=== PATIENT | male | born 1965 | race Caucasian/White ===

== ENCOUNTER 2021-12-29 14:16 | Inpatient (IN) | payer OTHER ==
[2021-12-29] MEDS ORDERED: ACETAMINOPHEN 325 MG TABLET (FP) PO PRN ×2 (16:15)
[2021-12-29] MEDS ORDERED: ONDANSETRON *ODT* 4 MG TABLET SL PRN (16:15)
[2021-12-29] MEDS ORDERED: BENZOCAINE/MENTHOL (CHLORASEPTIC ) LOZENGE MM PRN (16:15)
[2021-12-29] MEDS ORDERED: MAGNESIUM CITRATE 300 ML BOTTLE PO PRN (16:15)
[2021-12-29] MEDS ORDERED: MAGNESIUM HYDROX 2400MG/30ML ORAL SUSPENSION 30 ML CUP PO PRN (16:15)
[2021-12-29] MEDS ORDERED: LOPERAMIDE HCL 2 MG CAPSULE PO PRN (16:15)
[2021-12-29] MEDS ORDERED: BISMUTH SUBSALICYLATE 524 MG/30 ML PO PRN (16:15)
[2021-12-29] MEDS ORDERED: IBUPROFEN 400 MG TABLET (FP) PO PRN (16:15)
[2021-12-29] MEDS ORDERED: NICOTINE 10 MG CARTRIDGE (INHALER) IH PRN (16:15)
[2021-12-29] MEDS ORDERED: MAG HYDROX/AL HYDROX/SIMETH 30 ML UNIT-DOSE CUP PO PRN (16:15)
[2021-12-29] MEDS ORDERED: DICYCLOMINE HCL 10 MG CAPSULE PO PRN (16:15)
[2021-12-30 00:04] VITALS: BMI 23.8
[2021-12-30] MEDS: hydrOXYzine PAMOATE 25 MG CAPSULE (FP) PO SCH ×6 (03:26→22:27)
[2021-12-30] MEDS: THIAMINE HCL 100 MG TABLET (FP) PO SCH ×2 (03:27→22:27)
[2021-12-30] MEDS: MELATONIN 5 MG TABLETS PO SCH ×2 (03:37→22:27)
[2021-12-30] MEDS: METHOCARBAMOL 500 MG TABLET PO PRN ×3 (04:15→17:59)
[2021-12-30] MEDS: PRENATAL VITAMINS W/ FOLIC ACID TABLET (FP) PO SCH (10:34)
[2021-12-31] MEDS: hydrOXYzine PAMOATE 25 MG CAPSULE (FP) PO SCH ×5 (07:21→22:11)
[2021-12-31] MEDS: PRENATAL VITAMINS W/ FOLIC ACID TABLET (FP) PO SCH (10:31)
[2021-12-31] MEDS: METHOCARBAMOL 500 MG TABLET PO PRN ×2 (10:33→18:08)
[2021-12-31 13:43] LABS: HEMATOCRIT 29.5 % (35.4-49); HEMOGLOBIN 9.7 GM/dL (11.7-16.9); MCH 25.6 pg (25.7-33.7); MEAN CELL VOLUME 77.7 fl (80-96); MEAN PLT VOLUME 8.8 fl (7.5-11.1); PLATELET COUNT 247 10^3/uL (134-434); WHITE BLOOD COUNT 4.5 K/mm3 (4.0-10.0)
[2021-12-31 13:52] LABS: ALBUMIN 3.1 g/dl (3.4-5.0); CALCIUM 9.3 mg/dL (8.5-10.1)
[2021-12-31 13:53] LABS: BLOOD UREA NITROGEN 8.1 mg/dL (7-18)
[2021-12-31 13:55] LABS: CREATININE 0.6 mg/dL (0.55-1.3)
[2021-12-31 13:56] LABS: TOT PROT 7.9 g/dl (6.4-8.2)
[2021-12-31 13:57] LABS: BILIRUBIN,TOTAL 0.4 mg/dL (0.2-1)
[2021-12-31] MEDS: THIAMINE HCL 100 MG TABLET (FP) PO SCH (22:11)
[2021-12-31] MEDS: MELATONIN 5 MG TABLETS PO SCH (22:11)
[2022-01-01] MEDS: hydrOXYzine PAMOATE 25 MG CAPSULE (FP) PO SCH ×2 (07:18→10:37)
[2022-01-01] MEDS: PRENATAL VITAMINS W/ FOLIC ACID TABLET (FP) PO SCH (10:37)
[2022-01-01 13:12] VITALS: BP 115/73; PULSE 90; TEMP 98.2
== END 2022-01-01 14:12 | disposition other institution (70) | DRG 775 ==
LOC: YASAS 14:16 → Y3N 23:22 → UNDOADMIN 23:22
PROVIDERS: ADMIT Allergy & Immunology; ATTEND Allergy & Immunology
PROC: HZ2ZZZZ Detoxification Services for Substance Abuse Treatment (ICD-10-PCS; principal; 2021-12-29)
DX: F10.230 Alcohol dependence with withdrawal, uncomplicated (principal); D64.9 Anemia, unspecified; S22.42XD Multiple fractures of ribs, left side, subsequent encounter for fracture with routine healing; X58.XXXD Exposure to other specified factors, subsequent encounter
CPT/HCPCS: 36415; 80053; 85027; 86780; 93005; 93010; C9803-CS; U0003; U0005

== ENCOUNTER 2022-01-01 14:29 | Inpatient (IN) | payer OTHER ==
[2022-01-01] MEDS ORDERED: guaiFENesin 200 MG/10 ML 10 ML UNIT-DOSE CUPS PO PRN (15:29)
[2022-01-01] MEDS ORDERED: NICOTINE 10 MG CARTRIDGE (INHALER) IH PRN (15:29)
[2022-01-01] MEDS ORDERED: ACETAMINOPHEN 325 MG TABLET (FP) PO PRN (15:29)
[2022-01-01] MEDS ORDERED: MAGNESIUM CITRATE 300 ML BOTTLE PO PRN (15:29)
[2022-01-01] MEDS ORDERED: P-EPHED 60MG/TRIPROLIDI 2.5MG TABLET PO PRN (15:29)
[2022-01-01] MEDS ORDERED: MAG HYDROX/AL HYDROX/SIMETH 30 ML UNIT-DOSE CUP PO PRN (15:29)
[2022-01-01] MEDS ORDERED: BENZOCAINE/MENTHOL (CHLORASEPTIC ) LOZENGE MM PRN (15:29)
[2022-01-01] MEDS ORDERED: IBUPROFEN 400 MG TABLET (FP) PO PRN (15:29)
[2022-01-01] MEDS ORDERED: LOPERAMIDE HCL 2 MG CAPSULE PO PRN (15:29)
[2022-01-01] MEDS: THIAMINE HCL 100 MG TABLET (FP) PO SCH (21:45)
[2022-01-01] MEDS: MELATONIN 5 MG TABLETS PO SCH (21:46)
[2022-01-02] MEDS: hydrOXYzine PAMOATE 25 MG CAPSULE (FP) PO PRN (01:31)
[2022-01-02] MEDS: PRENATAL VITAMINS W/ FOLIC ACID TABLET (FP) PO SCH (10:57)
[2022-01-02] MEDS: AMOX TR/POT CLAV 875MG/125MG TABLETS (FP) PO SCH ×2 (13:07→21:07)
[2022-01-02] MEDS: POLYETHYLENE GLYCOL 3350 119 GM BTL PO SCH (15:29)
[2022-01-02] MEDS: MELATONIN 5 MG TABLETS PO SCH (21:07)
[2022-01-02] MEDS: THIAMINE HCL 100 MG TABLET (FP) PO SCH (21:07)
[2022-01-03] MEDS: AMOX TR/POT CLAV 875MG/125MG TABLETS (FP) PO SCH ×2 (09:56→21:26)
[2022-01-03] MEDS: POLYETHYLENE GLYCOL 3350 119 GM BTL PO SCH (09:56)
[2022-01-03] MEDS: PRENATAL VITAMINS W/ FOLIC ACID TABLET (FP) PO SCH (09:56)
[2022-01-03] MEDS: METHOCARBAMOL 500 MG TABLET PO SCH ×3 (13:19→21:26)
[2022-01-03] MEDS: LIDOCAINE 5% TOPICAL PATCH TP SCH (13:19)
[2022-01-03] MEDS: THIAMINE HCL 100 MG TABLET (FP) PO SCH (21:26)
[2022-01-03] MEDS: MELATONIN 5 MG TABLETS PO SCH (21:26)
[2022-01-03] MEDS: LIDOCAINE PATCH REMOVAL MC SCH (21:27)
[2022-01-04] MEDS: LIDOCAINE 5% TOPICAL PATCH TP SCH (10:15)
[2022-01-04] MEDS: AMOX TR/POT CLAV 875MG/125MG TABLETS (FP) PO SCH ×2 (10:15→21:10)
[2022-01-04] MEDS: PRENATAL VITAMINS W/ FOLIC ACID TABLET (FP) PO SCH (10:15)
[2022-01-04] MEDS: METHOCARBAMOL 500 MG TABLET PO SCH ×4 (10:15→21:11)
[2022-01-04] MEDS: POLYETHYLENE GLYCOL 3350 119 GM BTL PO SCH (10:15)
[2022-01-04] MEDS: MAGNESIUM HYDROX 2400MG/30ML ORAL SUSPENSION 30 ML CUP PO PRN (10:17)
[2022-01-04] MEDS: TOLNAFTATE 1% CREAM 15 GM TUBE TP SCH ×2 (13:53→21:11)
[2022-01-04] MEDS: FERROUS SO4 325 MG TABLET (FP) PO SCH (17:46)
[2022-01-04] MEDS: THIAMINE HCL 100 MG TABLET (FP) PO SCH (21:11)
[2022-01-04] MEDS: LIDOCAINE PATCH REMOVAL MC SCH (21:11)
[2022-01-04] MEDS: MELATONIN 5 MG TABLETS PO SCH (21:11)
[2022-01-05 06:06] LABS: SARS-CoV-2 NAA Not Detected (Not Detected)
[2022-01-05] MEDS: FERROUS SO4 325 MG TABLET (FP) PO SCH ×2 (07:06→17:30)
[2022-01-05] MEDS: LIDOCAINE 5% TOPICAL PATCH TP SCH (09:34)
[2022-01-05] MEDS: METHOCARBAMOL 500 MG TABLET PO SCH ×4 (09:35→21:05)
[2022-01-05] MEDS: PRENATAL VITAMINS W/ FOLIC ACID TABLET (FP) PO SCH (09:35)
[2022-01-05] MEDS: POLYETHYLENE GLYCOL 3350 119 GM BTL PO SCH (09:35)
[2022-01-05] MEDS: TOLNAFTATE 1% CREAM 15 GM TUBE TP SCH ×2 (09:36→21:06)
[2022-01-05] MEDS: THIAMINE HCL 100 MG TABLET (FP) PO SCH (21:03)
[2022-01-05] MEDS: LIDOCAINE PATCH REMOVAL MC SCH (21:06)
[2022-01-05] MEDS: MELATONIN 5 MG TABLETS PO SCH (21:06)
[2022-01-05] MEDS: hydrOXYzine PAMOATE 25 MG CAPSULE (FP) PO PRN (21:07)
[2022-01-06] MEDS: FERROUS SO4 325 MG TABLET (FP) PO SCH ×2 (07:21→17:23)
[2022-01-06] MEDS: PRENATAL VITAMINS W/ FOLIC ACID TABLET (FP) PO SCH (10:12)
[2022-01-06] MEDS: POLYETHYLENE GLYCOL 3350 119 GM BTL PO SCH (10:12)
[2022-01-06] MEDS: METHOCARBAMOL 500 MG TABLET PO SCH ×4 (10:12→21:33)
[2022-01-06] MEDS: LIDOCAINE 5% TOPICAL PATCH TP SCH (10:12)
[2022-01-06] MEDS: TOLNAFTATE 1% CREAM 15 GM TUBE TP SCH ×2 (10:13→21:35)
[2022-01-06] MEDS: THIAMINE HCL 100 MG TABLET (FP) PO SCH (21:33)
[2022-01-06] MEDS: LIDOCAINE PATCH REMOVAL MC SCH (21:33)
[2022-01-06] MEDS: MELATONIN 5 MG TABLETS PO SCH (21:34)
[2022-01-07] MEDS: FERROUS SO4 325 MG TABLET (FP) PO SCH ×2 (07:03→17:16)
[2022-01-07] MEDS: LIDOCAINE 5% TOPICAL PATCH TP SCH (10:43)
[2022-01-07] MEDS: PRENATAL VITAMINS W/ FOLIC ACID TABLET (FP) PO SCH (10:43)
[2022-01-07] MEDS: METHOCARBAMOL 500 MG TABLET PO SCH ×4 (10:43→21:02)
[2022-01-07] MEDS: POLYETHYLENE GLYCOL 3350 119 GM BTL PO SCH (10:44)
[2022-01-07] MEDS: TOLNAFTATE 1% CREAM 15 GM TUBE TP SCH ×2 (10:46→21:03)
[2022-01-07] MEDS: SENNOSIDES 8.6MG TABLET (FP) PO PRN (21:02)
[2022-01-07] MEDS: THIAMINE HCL 100 MG TABLET (FP) PO SCH (21:03)
[2022-01-07] MEDS: LIDOCAINE PATCH REMOVAL MC SCH (21:03)
[2022-01-07] MEDS: MELATONIN 5 MG TABLETS PO SCH (21:03)
[2022-01-08] MEDS: FERROUS SO4 325 MG TABLET (FP) PO SCH ×2 (07:09→18:30)
[2022-01-08] MEDS: POLYETHYLENE GLYCOL 3350 119 GM BTL PO SCH (09:57)
[2022-01-08] MEDS: LIDOCAINE 5% TOPICAL PATCH TP SCH (09:58)
[2022-01-08] MEDS: METHOCARBAMOL 500 MG TABLET PO SCH ×4 (09:58→21:32)
[2022-01-08] MEDS: PRENATAL VITAMINS W/ FOLIC ACID TABLET (FP) PO SCH (09:58)
[2022-01-08] MEDS: TOLNAFTATE 1% CREAM 15 GM TUBE TP SCH ×2 (09:58→21:33)
[2022-01-08] MEDS: ARTIFICIAL TEARS (POLYVINYL ALCOHOL) OPTH DROPS OU SCH ×2 (13:58→21:33)
[2022-01-08] MEDS: SENNOSIDES 8.6MG TABLET (FP) PO PRN (21:31)
[2022-01-08] MEDS: THIAMINE HCL 100 MG TABLET (FP) PO SCH (21:31)
[2022-01-08] MEDS: MELATONIN 5 MG TABLETS PO SCH (21:31)
[2022-01-08] MEDS: LIDOCAINE PATCH REMOVAL MC SCH (21:33)
[2022-01-09] MEDS: ARTIFICIAL TEARS (POLYVINYL ALCOHOL) OPTH DROPS OU SCH ×3 (06:01→21:05)
[2022-01-09] MEDS: FERROUS SO4 325 MG TABLET (FP) PO SCH ×2 (07:22→16:55)
[2022-01-09] MEDS: POLYETHYLENE GLYCOL 3350 119 GM BTL PO SCH (10:27)
[2022-01-09] MEDS: METHOCARBAMOL 500 MG TABLET PO SCH ×4 (10:27→21:04)
[2022-01-09] MEDS: LIDOCAINE 5% TOPICAL PATCH TP SCH (10:27)
[2022-01-09] MEDS: PRENATAL VITAMINS W/ FOLIC ACID TABLET (FP) PO SCH (10:27)
[2022-01-09] MEDS: TOLNAFTATE 1% CREAM 15 GM TUBE TP SCH ×2 (10:29→21:05)
[2022-01-09] MEDS: MELATONIN 5 MG TABLETS PO SCH (21:04)
[2022-01-09] MEDS: THIAMINE HCL 100 MG TABLET (FP) PO SCH (21:04)
[2022-01-09] MEDS: LIDOCAINE PATCH REMOVAL MC SCH (21:05)
[2022-01-09] MEDS: SENNOSIDES 8.6MG TABLET (FP) PO PRN (21:05)
[2022-01-10] MEDS: ARTIFICIAL TEARS (POLYVINYL ALCOHOL) OPTH DROPS OU SCH ×3 (05:53→21:31)
[2022-01-10] MEDS: FERROUS SO4 325 MG TABLET (FP) PO SCH ×2 (07:36→18:24)
[2022-01-10] MEDS: PRENATAL VITAMINS W/ FOLIC ACID TABLET (FP) PO SCH (10:16)
[2022-01-10] MEDS: METHOCARBAMOL 500 MG TABLET PO SCH ×4 (10:16→21:30)
[2022-01-10] MEDS: LIDOCAINE 5% TOPICAL PATCH TP SCH (10:16)
[2022-01-10] MEDS: POLYETHYLENE GLYCOL 3350 119 GM BTL PO SCH (10:17)
[2022-01-10] MEDS: TOLNAFTATE 1% CREAM 15 GM TUBE TP SCH ×2 (10:17→21:31)
[2022-01-10] MEDS: MELATONIN 5 MG TABLETS PO SCH (21:30)
[2022-01-10] MEDS: SENNOSIDES 8.6MG TABLET (FP) PO PRN (21:30)
[2022-01-10] MEDS: THIAMINE HCL 100 MG TABLET (FP) PO SCH (21:30)
[2022-01-10] MEDS: LIDOCAINE PATCH REMOVAL MC SCH (21:31)
[2022-01-11] MEDS: ARTIFICIAL TEARS (POLYVINYL ALCOHOL) OPTH DROPS OU SCH ×3 (06:08→21:07)
[2022-01-11] MEDS: FERROUS SO4 325 MG TABLET (FP) PO SCH ×2 (09:13→17:40)
[2022-01-11] MEDS: PRENATAL VITAMINS W/ FOLIC ACID TABLET (FP) PO SCH (09:13)
[2022-01-11] MEDS: POLYETHYLENE GLYCOL 3350 119 GM BTL PO SCH (09:13)
[2022-01-11] MEDS: METHOCARBAMOL 500 MG TABLET PO SCH ×4 (09:13→21:07)
[2022-01-11] MEDS: TOLNAFTATE 1% CREAM 15 GM TUBE TP SCH ×2 (09:14→21:08)
[2022-01-11] MEDS: LIDOCAINE 5% TOPICAL PATCH TP SCH (09:14)
[2022-01-11] MEDS: THIAMINE HCL 100 MG TABLET (FP) PO SCH (21:07)
[2022-01-11] MEDS: MELATONIN 5 MG TABLETS PO SCH (21:07)
[2022-01-11] MEDS: LIDOCAINE PATCH REMOVAL MC SCH (21:08)
[2022-01-12] MEDS: ARTIFICIAL TEARS (POLYVINYL ALCOHOL) OPTH DROPS OU SCH ×3 (06:08→21:24)
[2022-01-12] MEDS: FERROUS SO4 325 MG TABLET (FP) PO SCH ×2 (07:06→17:43)
[2022-01-12] MEDS: LIDOCAINE 5% TOPICAL PATCH TP SCH (09:48)
[2022-01-12] MEDS: POLYETHYLENE GLYCOL 3350 119 GM BTL PO SCH (09:49)
[2022-01-12] MEDS: PRENATAL VITAMINS W/ FOLIC ACID TABLET (FP) PO SCH (09:49)
[2022-01-12] MEDS: METHOCARBAMOL 500 MG TABLET PO SCH ×4 (09:49→21:23)
[2022-01-12] MEDS: TOLNAFTATE 1% CREAM 15 GM TUBE TP SCH ×2 (10:14→21:24)
[2022-01-12] MEDS: THIAMINE HCL 100 MG TABLET (FP) PO SCH (21:23)
[2022-01-12] MEDS: MELATONIN 5 MG TABLETS PO SCH (21:23)
[2022-01-12] MEDS: LIDOCAINE PATCH REMOVAL MC SCH (21:24)
[2022-01-13] MEDS: ARTIFICIAL TEARS (POLYVINYL ALCOHOL) OPTH DROPS OU SCH ×3 (06:01→21:02)
[2022-01-13] MEDS: FERROUS SO4 325 MG TABLET (FP) PO SCH ×2 (08:01→18:18)
[2022-01-13] MEDS: PRENATAL VITAMINS W/ FOLIC ACID TABLET (FP) PO SCH (09:48)
[2022-01-13] MEDS: METHOCARBAMOL 500 MG TABLET PO SCH ×4 (09:48→21:01)
[2022-01-13] MEDS: POLYETHYLENE GLYCOL 3350 119 GM BTL PO SCH (09:48)
[2022-01-13] MEDS: TOLNAFTATE 1% CREAM 15 GM TUBE TP SCH ×2 (10:18→21:02)
[2022-01-13] MEDS: LIDOCAINE 5% TOPICAL PATCH TP SCH (13:36)
[2022-01-13] MEDS: THIAMINE HCL 100 MG TABLET (FP) PO SCH (21:01)
[2022-01-13] MEDS: MELATONIN 5 MG TABLETS PO SCH (21:01)
[2022-01-13] MEDS: LIDOCAINE PATCH REMOVAL MC SCH (21:02)
[2022-01-14] MEDS: ARTIFICIAL TEARS (POLYVINYL ALCOHOL) OPTH DROPS OU SCH ×3 (06:22→21:23)
[2022-01-14] MEDS: FERROUS SO4 325 MG TABLET (FP) PO SCH ×2 (07:03→17:24)
[2022-01-14] MEDS: METHOCARBAMOL 500 MG TABLET PO SCH ×4 (10:11→21:22)
[2022-01-14] MEDS: LIDOCAINE 5% TOPICAL PATCH TP SCH (10:11)
[2022-01-14] MEDS: PRENATAL VITAMINS W/ FOLIC ACID TABLET (FP) PO SCH (10:11)
[2022-01-14] MEDS: POLYETHYLENE GLYCOL 3350 119 GM BTL PO SCH (10:12)
[2022-01-14] MEDS: TOLNAFTATE 1% CREAM 15 GM TUBE TP SCH ×2 (10:13→21:23)
[2022-01-14] MEDS: MELATONIN 5 MG TABLETS PO SCH (21:22)
[2022-01-14] MEDS: THIAMINE HCL 100 MG TABLET (FP) PO SCH (21:22)
[2022-01-14] MEDS: LIDOCAINE PATCH REMOVAL MC SCH (21:23)
[2022-01-15] MEDS: ARTIFICIAL TEARS (POLYVINYL ALCOHOL) OPTH DROPS OU SCH ×3 (06:11→21:13)
[2022-01-15] MEDS: FERROUS SO4 325 MG TABLET (FP) PO SCH ×2 (08:08→17:32)
[2022-01-15] MEDS: METHOCARBAMOL 500 MG TABLET PO SCH ×4 (09:55→21:12)
[2022-01-15] MEDS: LIDOCAINE 5% TOPICAL PATCH TP SCH (09:55)
[2022-01-15] MEDS: PRENATAL VITAMINS W/ FOLIC ACID TABLET (FP) PO SCH (09:55)
[2022-01-15] MEDS: TOLNAFTATE 1% CREAM 15 GM TUBE TP SCH ×2 (09:57→21:13)
[2022-01-15] MEDS: POLYETHYLENE GLYCOL 3350 119 GM BTL PO SCH (10:24)
[2022-01-15] MEDS: THIAMINE HCL 100 MG TABLET (FP) PO SCH (21:12)
[2022-01-15] MEDS: MELATONIN 5 MG TABLETS PO SCH (21:12)
[2022-01-15] MEDS: LIDOCAINE PATCH REMOVAL MC SCH (21:13)
[2022-01-16] MEDS: ARTIFICIAL TEARS (POLYVINYL ALCOHOL) OPTH DROPS OU SCH ×3 (06:03→21:19)
[2022-01-16] MEDS: FERROUS SO4 325 MG TABLET (FP) PO SCH ×2 (07:16→17:58)
[2022-01-16] MEDS: METHOCARBAMOL 500 MG TABLET PO SCH ×4 (09:32→21:18)
[2022-01-16] MEDS: PRENATAL VITAMINS W/ FOLIC ACID TABLET (FP) PO SCH (09:32)
[2022-01-16] MEDS: POLYETHYLENE GLYCOL 3350 119 GM BTL PO SCH (09:32)
[2022-01-16] MEDS: LIDOCAINE 5% TOPICAL PATCH TP SCH (09:32)
[2022-01-16] MEDS: TOLNAFTATE 1% CREAM 15 GM TUBE TP SCH ×2 (09:33→21:20)
[2022-01-16] MEDS: THIAMINE HCL 100 MG TABLET (FP) PO SCH (21:18)
[2022-01-16] MEDS: MELATONIN 5 MG TABLETS PO SCH (21:19)
[2022-01-16] MEDS: LIDOCAINE PATCH REMOVAL MC SCH (21:19)
[2022-01-17] MEDS: ARTIFICIAL TEARS (POLYVINYL ALCOHOL) OPTH DROPS OU SCH ×3 (06:21→22:15)
[2022-01-17] MEDS: FERROUS SO4 325 MG TABLET (FP) PO SCH ×2 (07:08→18:06)
[2022-01-17] MEDS: LIDOCAINE 5% TOPICAL PATCH TP SCH (10:02)
[2022-01-17] MEDS: POLYETHYLENE GLYCOL 3350 119 GM BTL PO SCH (10:02)
[2022-01-17] MEDS: PRENATAL VITAMINS W/ FOLIC ACID TABLET (FP) PO SCH (10:03)
[2022-01-17] MEDS: TOLNAFTATE 1% CREAM 15 GM TUBE TP SCH ×2 (10:03→21:49)
[2022-01-17] MEDS: METHOCARBAMOL 500 MG TABLET PO SCH ×4 (10:03→21:49)
[2022-01-17] MEDS: MAGNESIUM HYDROX 2400MG/30ML ORAL SUSPENSION 30 ML CUP PO PRN (10:04)
[2022-01-17] MEDS: SENNOSIDES 8.6MG TABLET (FP) PO PRN (21:20)
[2022-01-17] MEDS: MELATONIN 5 MG TABLETS PO SCH (21:20)
[2022-01-17] MEDS: LIDOCAINE PATCH REMOVAL MC SCH (21:49)
[2022-01-17] MEDS: THIAMINE HCL 100 MG TABLET (FP) PO SCH (21:49)
[2022-01-18] MEDS: ARTIFICIAL TEARS (POLYVINYL ALCOHOL) OPTH DROPS OU SCH (05:57)
[2022-01-18] MEDS: FERROUS SO4 325 MG TABLET (FP) PO SCH ×2 (07:47→17:12)
[2022-01-18] MEDS: PRENATAL VITAMINS W/ FOLIC ACID TABLET (FP) PO SCH (10:04)
[2022-01-18] MEDS: POLYETHYLENE GLYCOL 3350 119 GM BTL PO SCH (10:05)
[2022-01-18] MEDS: LIDOCAINE 5% TOPICAL PATCH TP SCH (10:05)
[2022-01-18] MEDS: METHOCARBAMOL 500 MG TABLET PO SCH ×4 (10:05→21:07)
[2022-01-18] MEDS: TOLNAFTATE 1% CREAM 15 GM TUBE TP SCH ×2 (10:06→21:08)
[2022-01-18] MEDS ORDERED: ARTIFICIAL TEARS (POLYVINYL ALCOHOL) OPTH DROPS OU PRN (11:59)
[2022-01-18] MEDS: THIAMINE HCL 100 MG TABLET (FP) PO SCH (21:07)
[2022-01-18] MEDS: MELATONIN 5 MG TABLETS PO SCH (21:08)
[2022-01-18] MEDS: LIDOCAINE PATCH REMOVAL MC SCH (21:09)
[2022-01-19] MEDS: LIDOCAINE 5% TOPICAL PATCH TP SCH (10:03)
[2022-01-19] MEDS: PRENATAL VITAMINS W/ FOLIC ACID TABLET (FP) PO SCH (10:03)
[2022-01-19] MEDS: FERROUS SO4 325 MG TABLET (FP) PO SCH ×2 (10:04→17:44)
[2022-01-19] MEDS: POLYETHYLENE GLYCOL 3350 119 GM BTL PO SCH (10:04)
[2022-01-19] MEDS: METHOCARBAMOL 500 MG TABLET PO SCH ×4 (10:05→21:20)
[2022-01-19] MEDS: TOLNAFTATE 1% CREAM 15 GM TUBE TP SCH ×2 (10:06→21:20)
[2022-01-19] MEDS: THIAMINE HCL 100 MG TABLET (FP) PO SCH (21:20)
[2022-01-19] MEDS: MELATONIN 5 MG TABLETS PO SCH (21:20)
[2022-01-19] MEDS: LIDOCAINE PATCH REMOVAL MC SCH (21:42)
[2022-01-20] MEDS: FERROUS SO4 325 MG TABLET (FP) PO SCH ×2 (07:12→17:09)
[2022-01-20] MEDS: PRENATAL VITAMINS W/ FOLIC ACID TABLET (FP) PO SCH (10:11)
[2022-01-20] MEDS: LIDOCAINE 5% TOPICAL PATCH TP SCH (10:11)
[2022-01-20] MEDS: METHOCARBAMOL 500 MG TABLET PO SCH ×4 (10:13→21:55)
[2022-01-20] MEDS: POLYETHYLENE GLYCOL 3350 119 GM BTL PO SCH (10:13)
[2022-01-20] MEDS: TOLNAFTATE 1% CREAM 15 GM TUBE TP SCH ×2 (10:14→21:55)
[2022-01-20] MEDS: LIDOCAINE PATCH REMOVAL MC SCH (21:54)
[2022-01-20] MEDS: MELATONIN 5 MG TABLETS PO SCH (21:55)
[2022-01-20] MEDS: THIAMINE HCL 100 MG TABLET (FP) PO SCH (21:55)
[2022-01-21] MEDS: FERROUS SO4 325 MG TABLET (FP) PO SCH ×2 (07:44→17:33)
[2022-01-21] MEDS: PRENATAL VITAMINS W/ FOLIC ACID TABLET (FP) PO SCH (10:10)
[2022-01-21] MEDS: METHOCARBAMOL 500 MG TABLET PO SCH ×4 (10:10→22:13)
[2022-01-21] MEDS: POLYETHYLENE GLYCOL 3350 119 GM BTL PO SCH (10:12)
[2022-01-21] MEDS: LIDOCAINE 5% TOPICAL PATCH TP SCH (10:12)
[2022-01-21] MEDS: TOLNAFTATE 1% CREAM 15 GM TUBE TP SCH ×2 (10:13→22:14)
[2022-01-21] MEDS: LIDOCAINE PATCH REMOVAL MC SCH (22:13)
[2022-01-21] MEDS: THIAMINE HCL 100 MG TABLET (FP) PO SCH (22:13)
[2022-01-21] MEDS: MELATONIN 5 MG TABLETS PO SCH (22:13)
[2022-01-22] MEDS: FERROUS SO4 325 MG TABLET (FP) PO SCH ×2 (07:34→17:04)
[2022-01-22] MEDS: LIDOCAINE 5% TOPICAL PATCH TP SCH (10:17)
[2022-01-22] MEDS: METHOCARBAMOL 500 MG TABLET PO SCH ×4 (10:17→21:30)
[2022-01-22] MEDS: PRENATAL VITAMINS W/ FOLIC ACID TABLET (FP) PO SCH (10:17)
[2022-01-22] MEDS: TOLNAFTATE 1% CREAM 15 GM TUBE TP SCH ×2 (10:18→21:31)
[2022-01-22] MEDS: POLYETHYLENE GLYCOL 3350 119 GM BTL PO SCH (11:09)
[2022-01-22] MEDS: THIAMINE HCL 100 MG TABLET (FP) PO SCH (21:30)
[2022-01-22] MEDS: hydrOXYzine PAMOATE 25 MG CAPSULE (FP) PO PRN (21:31)
[2022-01-22] MEDS: MELATONIN 5 MG TABLETS PO SCH (21:31)
[2022-01-22] MEDS: LIDOCAINE PATCH REMOVAL MC SCH (21:31)
[2022-01-23] MEDS: FERROUS SO4 325 MG TABLET (FP) PO SCH ×2 (07:12→17:39)
[2022-01-23] MEDS: PRENATAL VITAMINS W/ FOLIC ACID TABLET (FP) PO SCH (10:03)
[2022-01-23] MEDS: METHOCARBAMOL 500 MG TABLET PO SCH ×4 (10:03→21:44)
[2022-01-23] MEDS: LIDOCAINE 5% TOPICAL PATCH TP SCH (10:03)
[2022-01-23] MEDS: POLYETHYLENE GLYCOL 3350 119 GM BTL PO SCH (10:04)
[2022-01-23] MEDS: TOLNAFTATE 1% CREAM 15 GM TUBE TP SCH ×2 (10:04→21:46)
[2022-01-23] MEDS: LIDOCAINE PATCH REMOVAL MC SCH (21:43)
[2022-01-23] MEDS: MELATONIN 5 MG TABLETS PO SCH (21:44)
[2022-01-23] MEDS: SENNOSIDES 8.6MG TABLET (FP) PO PRN (21:45)
[2022-01-23] MEDS: THIAMINE HCL 100 MG TABLET (FP) PO SCH (21:46)
[2022-01-24] MEDS: FERROUS SO4 325 MG TABLET (FP) PO SCH ×2 (07:10→18:09)
[2022-01-24] MEDS: LIDOCAINE 5% TOPICAL PATCH TP SCH (09:57)
[2022-01-24] MEDS: POLYETHYLENE GLYCOL 3350 119 GM BTL PO SCH (09:57)
[2022-01-24] MEDS: METHOCARBAMOL 500 MG TABLET PO SCH ×4 (09:57→21:24)
[2022-01-24] MEDS: PRENATAL VITAMINS W/ FOLIC ACID TABLET (FP) PO SCH (09:57)
[2022-01-24] MEDS: TOLNAFTATE 1% CREAM 15 GM TUBE TP SCH ×2 (09:58→21:24)
[2022-01-24] MEDS: THIAMINE HCL 100 MG TABLET (FP) PO SCH (21:23)
[2022-01-24] MEDS: LIDOCAINE PATCH REMOVAL MC SCH (21:24)
[2022-01-24] MEDS: MELATONIN 5 MG TABLETS PO SCH (21:24)
[2022-01-25] MEDS: FERROUS SO4 325 MG TABLET (FP) PO SCH ×2 (07:07→17:43)
[2022-01-25] MEDS: LIDOCAINE 5% TOPICAL PATCH TP SCH (10:19)
[2022-01-25] MEDS: PRENATAL VITAMINS W/ FOLIC ACID TABLET (FP) PO SCH (10:19)
[2022-01-25] MEDS: METHOCARBAMOL 500 MG TABLET PO SCH ×4 (10:19→21:36)
[2022-01-25] MEDS: POLYETHYLENE GLYCOL 3350 119 GM BTL PO SCH (10:21)
[2022-01-25] MEDS: TOLNAFTATE 1% CREAM 15 GM TUBE TP SCH ×2 (10:22→21:37)
[2022-01-25] MEDS ORDERED: COLLOIDAL OATMEAL 1 BAR EACH TP PRN (14:54)
[2022-01-25] MEDS: LIDOCAINE PATCH REMOVAL MC SCH (21:35)
[2022-01-25] MEDS: MELATONIN 5 MG TABLETS PO SCH (21:36)
[2022-01-25] MEDS: THIAMINE HCL 100 MG TABLET (FP) PO SCH (21:36)
[2022-01-26] MEDS: FERROUS SO4 325 MG TABLET (FP) PO SCH ×2 (07:06→17:22)
[2022-01-26] MEDS: METHOCARBAMOL 500 MG TABLET PO SCH ×4 (09:59→21:45)
[2022-01-26] MEDS: POLYETHYLENE GLYCOL 3350 119 GM BTL PO SCH (09:59)
[2022-01-26] MEDS: PRENATAL VITAMINS W/ FOLIC ACID TABLET (FP) PO SCH (09:59)
[2022-01-26] MEDS: TOLNAFTATE 1% CREAM 15 GM TUBE TP SCH ×2 (10:00→21:45)
[2022-01-26] MEDS: LIDOCAINE 5% TOPICAL PATCH TP SCH (10:00)
[2022-01-26] MEDS: LIDOCAINE PATCH REMOVAL MC SCH (21:44)
[2022-01-26] MEDS: MELATONIN 5 MG TABLETS PO SCH (21:45)
[2022-01-26] MEDS: THIAMINE HCL 100 MG TABLET (FP) PO SCH (21:45)
[2022-01-27] MEDS: hydrOXYzine PAMOATE 25 MG CAPSULE (FP) PO PRN (06:07)
[2022-01-27] MEDS: FERROUS SO4 325 MG TABLET (FP) PO SCH ×2 (07:15→17:46)
[2022-01-27] MEDS: METHOCARBAMOL 500 MG TABLET PO SCH ×4 (10:19→21:24)
[2022-01-27] MEDS: TOLNAFTATE 1% CREAM 15 GM TUBE TP SCH ×2 (10:19→21:25)
[2022-01-27] MEDS: PRENATAL VITAMINS W/ FOLIC ACID TABLET (FP) PO SCH (10:19)
[2022-01-27] MEDS: POLYETHYLENE GLYCOL 3350 119 GM BTL PO SCH (10:19)
[2022-01-27] MEDS: LIDOCAINE 5% TOPICAL PATCH TP SCH (10:19)
[2022-01-27] MEDS: MELATONIN 5 MG TABLETS PO SCH (21:24)
[2022-01-27] MEDS: THIAMINE HCL 100 MG TABLET (FP) PO SCH (21:24)
[2022-01-27] MEDS: LIDOCAINE PATCH REMOVAL MC SCH (21:25)
[2022-01-28] MEDS: FERROUS SO4 325 MG TABLET (FP) PO SCH ×2 (07:05→17:45)
[2022-01-28] MEDS: LIDOCAINE 5% TOPICAL PATCH TP SCH (10:03)
[2022-01-28] MEDS: PRENATAL VITAMINS W/ FOLIC ACID TABLET (FP) PO SCH (10:04)
[2022-01-28] MEDS: METHOCARBAMOL 500 MG TABLET PO SCH ×4 (10:04→21:43)
[2022-01-28] MEDS: POLYETHYLENE GLYCOL 3350 119 GM BTL PO SCH (10:04)
[2022-01-28] MEDS: TOLNAFTATE 1% CREAM 15 GM TUBE TP SCH ×2 (10:06→21:43)
[2022-01-28] MEDS: MELATONIN 5 MG TABLETS PO SCH (21:43)
[2022-01-28] MEDS: THIAMINE HCL 100 MG TABLET (FP) PO SCH (21:43)
[2022-01-28] MEDS: LIDOCAINE PATCH REMOVAL MC SCH (21:43)
[2022-01-29 07:02] VITALS: BP 124/83; PULSE 78; TEMP 96.9
[2022-01-29] MEDS: FERROUS SO4 325 MG TABLET (FP) PO SCH (07:18)
[2022-01-29] MEDS: PRENATAL VITAMINS W/ FOLIC ACID TABLET (FP) PO SCH (10:12)
[2022-01-29] MEDS: METHOCARBAMOL 500 MG TABLET PO SCH (10:12)
[2022-01-29] MEDS: POLYETHYLENE GLYCOL 3350 119 GM BTL PO SCH (10:13)
[2022-01-29] MEDS: TOLNAFTATE 1% CREAM 15 GM TUBE TP SCH (10:14)
[2022-01-29] MEDS: LIDOCAINE 5% TOPICAL PATCH TP SCH (10:14)
== END 2022-01-29 12:37 | disposition home or self-care (01) | DRG 772 ==
LOC: YASAS 14:29 → Y3W 14:31 → Y5N 01-16 11:15
PROVIDERS: ADMIT Allergy & Immunology; ATTEND Allergy & Immunology
PROC: HZ42ZZZ Group Counseling for Substance Abuse Treatment, Cognitive-Behavioral (ICD-10-PCS; principal; 2022-01-01)
DX: F10.20 Alcohol dependence, uncomplicated (principal); D50.9 Iron deficiency anemia, unspecified; K59.01 Slow transit constipation; R09.81 Nasal congestion
CPT/HCPCS: C9803-CS; U0003; U0005

== ENCOUNTER 2022-10-02 16:24 | Inpatient (IN) | payer OTHER ==
[2022-10-02 16:59] VITALS: BMI 23.1
[2022-10-02] MEDS ORDERED: chlordiazePOXIDE HCL 25 MG CAPSULE PO PRN (17:38)
[2022-10-02] MEDS ORDERED: BENZOCAINE/MENTHOL (CHLORASEPTIC ) LOZENGE MM PRN (17:38)
[2022-10-02] MEDS ORDERED: LOPERAMIDE HCL 2 MG CAPSULE PO PRN (17:38)
[2022-10-02] MEDS ORDERED: MAGNESIUM HYDROX 2400MG/30ML ORAL SUSPENSION 30 ML CUP PO PRN (17:38)
[2022-10-02] MEDS ORDERED: hydrOXYzine PAMOATE 25 MG CAPSULE (FP) PO PRN (17:38)
[2022-10-02] MEDS ORDERED: POLYETHYLENE GLYCOL (HEALTHYLAX) 3350 17 GM PACKET PO PRN (17:38)
[2022-10-02] MEDS ORDERED: DICYCLOMINE HCL 10 MG CAPSULE PO PRN (17:38)
[2022-10-02] MEDS ORDERED: ONDANSETRON *ODT* 4 MG TABLET SL PRN (17:38)
[2022-10-02] MEDS ORDERED: NALOXONE HCL (KLOXXADO) 8 MG SPRAY NS PRN (17:38)
[2022-10-02] MEDS ORDERED: MAG HYDROX/AL HYDROX/SIMETH 30 ML UNIT-DOSE CUP PO PRN (17:38)
[2022-10-02] MEDS: chlordiazePOXIDE HCL 25 MG CAPSULE PO SCH ×2 (20:31→22:13)
[2022-10-02] MEDS: METHOCARBAMOL 500 MG TABLET PO PRN (20:32)
[2022-10-02] MEDS: LIDOCAINE PATCH REMOVAL MC SCH (21:30)
[2022-10-02] MEDS: THIAMINE HCL 100 MG TABLET (FP) PO SCH (21:30)
[2022-10-02] MEDS: MELATONIN 5 MG TABLETS PO PRN (21:31)
[2022-10-03] MEDS: chlordiazePOXIDE HCL 25 MG CAPSULE PO SCH ×4 (06:00→22:27)
[2022-10-03] MEDS: LIDOCAINE 5% TOPICAL PATCH TP SCH (09:08)
[2022-10-03] MEDS: METHOCARBAMOL 500 MG TABLET PO PRN ×2 (09:10→17:29)
[2022-10-03] MEDS: PRENATAL VITAMINS W/ FOLIC ACID TABLET (FP) PO SCH (09:10)
[2022-10-03 10:29] LABS: HEMATOCRIT 33.5 % (35.4-49); HEMOGLOBIN 10.7 GM/dL (11.7-16.9); MCH 24.9 pg (25.7-33.7); MEAN CELL VOLUME 77.6 fl (80-96); PLATELET COUNT 177 10^3/uL (134-434); RBC 4.31 M/mm3 (4.00-5.60); RDW 20.8 % (11.9-15.9); WHITE BLOOD COUNT 4.7 K/mm3 (4.0-10.0)
[2022-10-03 10:59] LABS: ALBUMIN 3.4 g/dl (3.4-5.0); BLOOD UREA NITROGEN 6.6 mg/dL (7-18); CREATININE 0.5 mg/dL (0.55-1.3)
[2022-10-03 11:00] LABS: BILIRUBIN,TOTAL 1.4 mg/dL (0.2-1)
[2022-10-03 11:01] LABS: CALCIUM 9.4 mg/dL (8.5-10.1)
[2022-10-03] MEDS: THIAMINE HCL 100 MG TABLET (FP) PO SCH (22:26)
[2022-10-03] MEDS: MELATONIN 5 MG TABLETS PO PRN (22:26)
[2022-10-03] MEDS: LIDOCAINE PATCH REMOVAL MC SCH (22:27)
[2022-10-04] MEDS: chlordiazePOXIDE HCL 25 MG CAPSULE PO SCH ×4 (06:18→22:50)
[2022-10-04] MEDS: PRENATAL VITAMINS W/ FOLIC ACID TABLET (FP) PO SCH (10:40)
[2022-10-04] MEDS: LIDOCAINE 5% TOPICAL PATCH TP SCH (10:42)
[2022-10-04] MEDS ORDERED: AMMONIUM LACTATE 12% LOTION 225 GM BOTTLE TP PRN (13:36)
[2022-10-04] MEDS: METHOCARBAMOL 500 MG TABLET PO PRN (17:59)
[2022-10-04] MEDS: BACITRACIN 0.9 GM PACKET TP SCH (22:50)
[2022-10-04] MEDS: LIDOCAINE PATCH REMOVAL MC SCH (22:50)
[2022-10-04] MEDS: THIAMINE HCL 100 MG TABLET (FP) PO SCH (22:51)
[2022-10-05] MEDS ORDERED: chlordiazePOXIDE HCL 10 MG CAPSULE PO PRN
[2022-10-05] MEDS: chlordiazePOXIDE HCL 10 MG CAPSULE PO SCH ×4 (06:05→22:32)
[2022-10-05] MEDS: PRENATAL VITAMINS W/ FOLIC ACID TABLET (FP) PO SCH (10:17)
[2022-10-05] MEDS: BACITRACIN 0.9 GM PACKET TP SCH ×2 (10:18→22:31)
[2022-10-05] MEDS: LIDOCAINE 5% TOPICAL PATCH TP SCH (10:18)
[2022-10-05 12:03] LABS: IRON SERUM 113 ug/dL (50-175); TOTAL IRON BINDING CAPACITY 405 ug/dL (250-450)
[2022-10-05] MEDS: LIDOCAINE PATCH REMOVAL MC SCH (22:32)
[2022-10-05] MEDS: THIAMINE HCL 100 MG TABLET (FP) PO SCH (22:32)
[2022-10-05] MEDS: MELATONIN 5 MG TABLETS PO PRN (22:32)
[2022-10-06] MEDS: chlordiazePOXIDE HCL 10 MG CAPSULE PO SCH ×2 (05:49→17:34)
[2022-10-06] MEDS: PRENATAL VITAMINS W/ FOLIC ACID TABLET (FP) PO SCH (09:15)
[2022-10-06] MEDS: BACITRACIN 0.9 GM PACKET TP SCH ×2 (09:15→22:15)
[2022-10-06] MEDS: LIDOCAINE 5% TOPICAL PATCH TP SCH (09:16)
[2022-10-06] MEDS: MELATONIN 5 MG TABLETS PO PRN (22:15)
[2022-10-06] MEDS: THIAMINE HCL 100 MG TABLET (FP) PO SCH (22:15)
[2022-10-06] MEDS: LIDOCAINE PATCH REMOVAL MC SCH (22:16)
[2022-10-07] MEDS ORDERED: chlordiazePOXIDE HCL 10 MG CAPSULE PO ONE (05:00)
[2022-10-07] MEDS: LIDOCAINE 5% TOPICAL PATCH TP SCH (09:44)
[2022-10-07] MEDS: PRENATAL VITAMINS W/ FOLIC ACID TABLET (FP) PO SCH (09:44)
[2022-10-07] MEDS: BACITRACIN 0.9 GM PACKET TP SCH (09:44)
[2022-10-07 09:52] VITALS: BP 110/76; PULSE 88; RESP 17; TEMP 97.3
== END 2022-10-07 11:24 | disposition other institution (70) | DRG 775 ==
LOC: YASAS 16:24 → Y3N 18:13
PROVIDERS: ADMIT Allergy & Immunology; ATTEND Surgery
PROC: HZ2ZZZZ Detoxification Services for Substance Abuse Treatment (ICD-10-PCS; principal; 2022-10-02)
DX: F10.230 Alcohol dependence with withdrawal, uncomplicated (principal); D50.9 Iron deficiency anemia, unspecified; E80.6 Other disorders of bilirubin metabolism; S00.01XA Abrasion of scalp, initial encounter; R07.81 Pleurodynia; M25.512 Pain in left shoulder; M25.532 Pain in left wrist; W19.XXXA Unspecified fall, initial encounter; R29.6 Repeated falls; Z96.642 Presence of left artificial hip joint; Z91.81 History of falling; Y92.9 Unspecified place or not applicable; Z88.6 Allergy status to analgesic agent
CPT/HCPCS: 36415; 71101-TC-LT-FY; 73030-TC-LT-FY; 73110-TC-LT-FY; 80053; 83540; 83550; 85027; 86780; C9803-CS; U0003; U0005

== ENCOUNTER 2022-10-07 11:08 | Inpatient (IN) | payer OTHER ==
[2022-10-07] MEDS ORDERED: MAGNESIUM HYDROX 2400MG/30ML ORAL SUSPENSION 30 ML CUP PO PRN (11:48)
[2022-10-07] MEDS ORDERED: P-EPHED 60MG/TRIPROLIDI 2.5MG TABLET PO PRN (11:48)
[2022-10-07] MEDS ORDERED: POLYETHYLENE GLYCOL (HEALTHYLAX) 3350 17 GM PACKET PO PRN (11:48)
[2022-10-07] MEDS ORDERED: LOPERAMIDE HCL 2 MG CAPSULE PO PRN (11:48)
[2022-10-07] MEDS ORDERED: hydrOXYzine PAMOATE 25 MG CAPSULE (FP) PO PRN (11:48)
[2022-10-07] MEDS ORDERED: guaiFENesin 200 MG/10 ML 10 ML UNIT-DOSE CUPS PO PRN (11:48)
[2022-10-07] MEDS ORDERED: BENZOCAINE/MENTHOL (CHLORASEPTIC ) LOZENGE MM PRN (11:48)
[2022-10-07] MEDS ORDERED: NICOTINE 10 MG CARTRIDGE (INHALER) IH PRN (11:48)
[2022-10-07] MEDS ORDERED: MAG HYDROX/AL HYDROX/SIMETH 30 ML UNIT-DOSE CUP PO PRN (11:48)
[2022-10-07] MEDS ORDERED: NICOTINE 14 MG/24 HOURS TOPICAL PATCH TD SCH (12:00)
[2022-10-07] MEDS: PRENATAL VITAMINS W/ FOLIC ACID TABLET (FP) PO SCH (12:24)
[2022-10-07] MEDS: THIAMINE HCL 100 MG TABLET (FP) PO SCH (21:23)
[2022-10-07] MEDS: MELATONIN 5 MG TABLETS PO SCH (21:23)
[2022-10-07] MEDS: SENNOSIDES 8.6MG TABLET (FP) PO SCH (21:23)
[2022-10-08] MEDS ORDERED: PATIENT'S OWN MEDICATION (NON-FORMULARY) (Polyethylene Glycol 3350 119 GM Bottle) PO SCH (10:00)
[2022-10-08] MEDS: PRENATAL VITAMINS W/ FOLIC ACID TABLET (FP) PO SCH (10:03)
[2022-10-08] MEDS ORDERED: FERROUS SO4 325 MG TABLET (FP) PO SCH (14:15)
[2022-10-08] MEDS: THIAMINE HCL 100 MG TABLET (FP) PO SCH (21:27)
[2022-10-08] MEDS: MELATONIN 5 MG TABLETS PO SCH (21:27)
[2022-10-08] MEDS: SENNOSIDES 8.6MG TABLET (FP) PO SCH (21:27)
[2022-10-08] MEDS: METHOCARBAMOL 500 MG TABLET PO PRN (21:27)
[2022-10-08] MEDS: LIDOCAINE PATCH REMOVAL MC SCH (21:28)
[2022-10-09] MEDS: LIDOCAINE 5% TOPICAL PATCH TP SCH (10:01)
[2022-10-09] MEDS: PRENATAL VITAMINS W/ FOLIC ACID TABLET (FP) PO SCH (10:01)
[2022-10-09] MEDS: METHOCARBAMOL 500 MG TABLET PO PRN ×2 (10:03→21:10)
[2022-10-09] MEDS: THIAMINE HCL 100 MG TABLET (FP) PO SCH (21:10)
[2022-10-09] MEDS: MELATONIN 5 MG TABLETS PO SCH (21:10)
[2022-10-09] MEDS: SENNOSIDES 8.6MG TABLET (FP) PO SCH (21:10)
[2022-10-09] MEDS: LIDOCAINE PATCH REMOVAL MC SCH (21:10)
[2022-10-10] MEDS: LIDOCAINE 5% TOPICAL PATCH TP SCH (10:11)
[2022-10-10] MEDS: PRENATAL VITAMINS W/ FOLIC ACID TABLET (FP) PO SCH (10:11)
[2022-10-10] MEDS: METHOCARBAMOL 500 MG TABLET PO PRN (10:13)
[2022-10-10] MEDS ORDERED: LIDOCAINE 5% TOPICAL PATCH TP PRN (15:23)
[2022-10-10] MEDS: LIDOCAINE PATCH REMOVAL MC SCH (21:08)
[2022-10-10] MEDS: THIAMINE HCL 100 MG TABLET (FP) PO SCH (21:08)
[2022-10-10] MEDS: SENNOSIDES 8.6MG TABLET (FP) PO SCH (21:08)
[2022-10-10] MEDS: MELATONIN 5 MG TABLETS PO SCH (21:08)
[2022-10-11] MEDS: PRENATAL VITAMINS W/ FOLIC ACID TABLET (FP) PO SCH (10:10)
[2022-10-11] MEDS: METHYL SALICYLATE/MENTHOL OINT 30 GM TUBE TP PRN ×2 (16:38→21:30)
[2022-10-11] MEDS: SENNOSIDES 8.6MG TABLET (FP) PO SCH (21:28)
[2022-10-11] MEDS: THIAMINE HCL 100 MG TABLET (FP) PO SCH (21:28)
[2022-10-11] MEDS: LIDOCAINE PATCH REMOVAL MC SCH (21:29)
[2022-10-11] MEDS: MELATONIN 5 MG TABLETS PO SCH (21:29)
[2022-10-11] MEDS: TOLNAFTATE 1% CREAM 15 GM TUBE TP SCH (21:31)
[2022-10-12] MEDS: PRENATAL VITAMINS W/ FOLIC ACID TABLET (FP) PO SCH (09:55)
[2022-10-12] MEDS: METHOCARBAMOL 500 MG TABLET PO PRN ×2 (09:57→21:11)
[2022-10-12] MEDS: METHYL SALICYLATE/MENTHOL OINT 30 GM TUBE TP PRN ×2 (09:58→22:14)
[2022-10-12] MEDS: TOLNAFTATE 1% CREAM 15 GM TUBE TP SCH ×2 (09:58→21:11)
[2022-10-12] MEDS: THIAMINE HCL 100 MG TABLET (FP) PO SCH (21:09)
[2022-10-12] MEDS: MELATONIN 5 MG TABLETS PO SCH (21:09)
[2022-10-12] MEDS: SENNOSIDES 8.6MG TABLET (FP) PO SCH (21:09)
[2022-10-12] MEDS: LIDOCAINE PATCH REMOVAL MC SCH (21:40)
[2022-10-13] MEDS: PRENATAL VITAMINS W/ FOLIC ACID TABLET (FP) PO SCH (10:20)
[2022-10-13] MEDS: FERROUS SO4 325 MG TABLET (FP) PO SCH (10:21)
[2022-10-13] MEDS: TOLNAFTATE 1% CREAM 15 GM TUBE TP SCH ×2 (10:21→21:52)
[2022-10-13] MEDS: METHOCARBAMOL 500 MG TABLET PO PRN ×2 (10:21→21:51)
[2022-10-13] MEDS: SENNOSIDES 8.6MG TABLET (FP) PO SCH (21:51)
[2022-10-13] MEDS: MELATONIN 5 MG TABLETS PO SCH (21:51)
[2022-10-13] MEDS: METHYL SALICYLATE/MENTHOL OINT 30 GM TUBE TP PRN (21:52)
[2022-10-13] MEDS: LIDOCAINE PATCH REMOVAL MC SCH (21:54)
[2022-10-13] MEDS: THIAMINE HCL 100 MG TABLET (FP) PO SCH (21:55)
[2022-10-14] MEDS: PRENATAL VITAMINS W/ FOLIC ACID TABLET (FP) PO SCH (10:16)
[2022-10-14] MEDS: TOLNAFTATE 1% CREAM 15 GM TUBE TP SCH ×2 (10:16→21:34)
[2022-10-14] MEDS: FERROUS SO4 325 MG TABLET (FP) PO SCH (10:17)
[2022-10-14] MEDS: METHOCARBAMOL 500 MG TABLET PO PRN ×2 (10:18→21:33)
[2022-10-14] MEDS: MELATONIN 5 MG TABLETS PO SCH (21:33)
[2022-10-14] MEDS: SENNOSIDES 8.6MG TABLET (FP) PO SCH (21:33)
[2022-10-14] MEDS: METHYL SALICYLATE/MENTHOL OINT 30 GM TUBE TP PRN (21:33)
[2022-10-14] MEDS: THIAMINE HCL 100 MG TABLET (FP) PO SCH (21:33)
[2022-10-14] MEDS: LIDOCAINE PATCH REMOVAL MC SCH (21:34)
[2022-10-15] MEDS: PRENATAL VITAMINS W/ FOLIC ACID TABLET (FP) PO SCH (09:54)
[2022-10-15] MEDS: FERROUS SO4 325 MG TABLET (FP) PO SCH (09:54)
[2022-10-15] MEDS: TOLNAFTATE 1% CREAM 15 GM TUBE TP SCH ×2 (09:55→21:21)
[2022-10-15] MEDS: MELATONIN 5 MG TABLETS PO SCH (21:20)
[2022-10-15] MEDS: SENNOSIDES 8.6MG TABLET (FP) PO SCH (21:20)
[2022-10-15] MEDS: THIAMINE HCL 100 MG TABLET (FP) PO SCH (21:21)
[2022-10-15] MEDS: LIDOCAINE PATCH REMOVAL MC SCH (21:22)
[2022-10-16] MEDS: TOLNAFTATE 1% CREAM 15 GM TUBE TP SCH ×2 (10:05→21:09)
[2022-10-16] MEDS: PRENATAL VITAMINS W/ FOLIC ACID TABLET (FP) PO SCH (10:05)
[2022-10-16] MEDS: FERROUS SO4 325 MG TABLET (FP) PO SCH (10:05)
[2022-10-16] MEDS: SENNOSIDES 8.6MG TABLET (FP) PO SCH (21:08)
[2022-10-16] MEDS: MELATONIN 5 MG TABLETS PO SCH (21:08)
[2022-10-16] MEDS: THIAMINE HCL 100 MG TABLET (FP) PO SCH (21:09)
[2022-10-16] MEDS: METHOCARBAMOL 500 MG TABLET PO PRN (21:09)
[2022-10-16] MEDS: LIDOCAINE PATCH REMOVAL MC SCH (21:17)
[2022-10-17] MEDS: PRENATAL VITAMINS W/ FOLIC ACID TABLET (FP) PO SCH (09:51)
[2022-10-17] MEDS: TOLNAFTATE 1% CREAM 15 GM TUBE TP SCH ×2 (09:52→21:07)
[2022-10-17] MEDS: FERROUS SO4 325 MG TABLET (FP) PO SCH (09:52)
[2022-10-17] MEDS: SENNOSIDES 8.6MG TABLET (FP) PO SCH (21:06)
[2022-10-17] MEDS: METHOCARBAMOL 500 MG TABLET PO PRN (21:06)
[2022-10-17] MEDS: MELATONIN 5 MG TABLETS PO SCH (21:06)
[2022-10-17] MEDS: THIAMINE HCL 100 MG TABLET (FP) PO SCH (21:06)
[2022-10-17] MEDS: METHYL SALICYLATE/MENTHOL OINT 30 GM TUBE TP PRN (21:09)
[2022-10-17] MEDS: LIDOCAINE PATCH REMOVAL MC SCH (21:31)
[2022-10-18] MEDS: PRENATAL VITAMINS W/ FOLIC ACID TABLET (FP) PO SCH (09:40)
[2022-10-18] MEDS: FERROUS SO4 325 MG TABLET (FP) PO SCH (09:40)
[2022-10-18] MEDS: TOLNAFTATE 1% CREAM 15 GM TUBE TP SCH ×2 (09:41→21:17)
[2022-10-18] MEDS: MELATONIN 5 MG TABLETS PO SCH (21:18)
[2022-10-18] MEDS: METHOCARBAMOL 500 MG TABLET PO PRN (21:18)
[2022-10-18] MEDS: SENNOSIDES 8.6MG TABLET (FP) PO SCH (21:18)
[2022-10-18] MEDS: THIAMINE HCL 100 MG TABLET (FP) PO SCH (21:18)
[2022-10-18] MEDS: LIDOCAINE PATCH REMOVAL MC SCH (21:19)
[2022-10-19] MEDS: PRENATAL VITAMINS W/ FOLIC ACID TABLET (FP) PO SCH (10:03)
[2022-10-19] MEDS: FERROUS SO4 325 MG TABLET (FP) PO SCH (10:03)
[2022-10-19] MEDS: TOLNAFTATE 1% CREAM 15 GM TUBE TP SCH ×2 (10:04→21:47)
[2022-10-19] MEDS: MELATONIN 5 MG TABLETS PO SCH (21:41)
[2022-10-19] MEDS: METHOCARBAMOL 500 MG TABLET PO PRN (21:41)
[2022-10-19] MEDS: THIAMINE HCL 100 MG TABLET (FP) PO SCH (21:41)
[2022-10-19] MEDS: SENNOSIDES 8.6MG TABLET (FP) PO SCH (21:42)
[2022-10-19] MEDS: LIDOCAINE PATCH REMOVAL MC SCH (21:43)
[2022-10-20] MEDS: FERROUS SO4 325 MG TABLET (FP) PO SCH (09:56)
[2022-10-20] MEDS: PRENATAL VITAMINS W/ FOLIC ACID TABLET (FP) PO SCH (09:56)
[2022-10-20] MEDS: TOLNAFTATE 1% CREAM 15 GM TUBE TP SCH ×2 (09:56→22:23)
[2022-10-20] MEDS: LIDOCAINE PATCH REMOVAL MC SCH (22:23)
[2022-10-20] MEDS: MELATONIN 5 MG TABLETS PO SCH (22:23)
[2022-10-20] MEDS: THIAMINE HCL 100 MG TABLET (FP) PO SCH (22:23)
[2022-10-20] MEDS: SENNOSIDES 8.6MG TABLET (FP) PO SCH (22:23)
[2022-10-21] MEDS: PRENATAL VITAMINS W/ FOLIC ACID TABLET (FP) PO SCH (09:54)
[2022-10-21] MEDS: METHYL SALICYLATE/MENTHOL OINT 30 GM TUBE TP PRN (09:55)
[2022-10-21] MEDS: FERROUS SO4 325 MG TABLET (FP) PO SCH (09:56)
[2022-10-21] MEDS: TOLNAFTATE 1% CREAM 15 GM TUBE TP SCH ×2 (09:56→21:39)
[2022-10-21] MEDS: SENNOSIDES 8.6MG TABLET (FP) PO SCH (21:38)
[2022-10-21] MEDS: MELATONIN 5 MG TABLETS PO SCH (21:38)
[2022-10-21] MEDS: THIAMINE HCL 100 MG TABLET (FP) PO SCH (21:38)
[2022-10-21] MEDS: LIDOCAINE PATCH REMOVAL MC SCH (21:38)
[2022-10-22] MEDS: FERROUS SO4 325 MG TABLET (FP) PO SCH (10:01)
[2022-10-22] MEDS: PRENATAL VITAMINS W/ FOLIC ACID TABLET (FP) PO SCH (10:02)
[2022-10-22] MEDS: TOLNAFTATE 1% CREAM 15 GM TUBE TP SCH ×2 (10:02→21:22)
[2022-10-22] MEDS: SENNOSIDES 8.6MG TABLET (FP) PO SCH (21:22)
[2022-10-22] MEDS: THIAMINE HCL 100 MG TABLET (FP) PO SCH (21:22)
[2022-10-22] MEDS: LIDOCAINE PATCH REMOVAL MC SCH (21:22)
[2022-10-22] MEDS: MELATONIN 5 MG TABLETS PO SCH (21:22)
[2022-10-23] MEDS: TOLNAFTATE 1% CREAM 15 GM TUBE TP SCH ×2 (10:06→21:21)
[2022-10-23] MEDS: FERROUS SO4 325 MG TABLET (FP) PO SCH (10:06)
[2022-10-23] MEDS: PRENATAL VITAMINS W/ FOLIC ACID TABLET (FP) PO SCH (10:06)
[2022-10-23] MEDS: LIDOCAINE PATCH REMOVAL MC SCH (21:20)
[2022-10-23] MEDS: THIAMINE HCL 100 MG TABLET (FP) PO SCH (21:20)
[2022-10-23] MEDS: SENNOSIDES 8.6MG TABLET (FP) PO SCH (21:20)
[2022-10-23] MEDS: MELATONIN 5 MG TABLETS PO SCH (21:20)
[2022-10-24] MEDS: PRENATAL VITAMINS W/ FOLIC ACID TABLET (FP) PO SCH (10:03)
[2022-10-24] MEDS: FERROUS SO4 325 MG TABLET (FP) PO SCH (10:04)
[2022-10-24] MEDS: TOLNAFTATE 1% CREAM 15 GM TUBE TP SCH ×2 (10:04→21:36)
[2022-10-24] MEDS: THIAMINE HCL 100 MG TABLET (FP) PO SCH (21:35)
[2022-10-24] MEDS: SENNOSIDES 8.6MG TABLET (FP) PO SCH (21:35)
[2022-10-24] MEDS: MELATONIN 5 MG TABLETS PO SCH (21:35)
[2022-10-24] MEDS: LIDOCAINE PATCH REMOVAL MC SCH (21:35)
[2022-10-25] MEDS: PRENATAL VITAMINS W/ FOLIC ACID TABLET (FP) PO SCH (10:03)
[2022-10-25] MEDS: FERROUS SO4 325 MG TABLET (FP) PO SCH (10:03)
[2022-10-25] MEDS: TOLNAFTATE 1% CREAM 15 GM TUBE TP SCH ×2 (10:03→21:38)
[2022-10-25] MEDS: MELATONIN 5 MG TABLETS PO SCH (21:37)
[2022-10-25] MEDS: THIAMINE HCL 100 MG TABLET (FP) PO SCH (21:37)
[2022-10-25] MEDS: SENNOSIDES 8.6MG TABLET (FP) PO SCH (21:37)
[2022-10-25] MEDS: LIDOCAINE PATCH REMOVAL MC SCH (21:57)
[2022-10-26] MEDS: PRENATAL VITAMINS W/ FOLIC ACID TABLET (FP) PO SCH (10:17)
[2022-10-26] MEDS: TOLNAFTATE 1% CREAM 15 GM TUBE TP SCH ×2 (10:18→21:34)
[2022-10-26] MEDS: FERROUS SO4 325 MG TABLET (FP) PO SCH (10:18)
[2022-10-26] MEDS: SENNOSIDES 8.6MG TABLET (FP) PO SCH (21:32)
[2022-10-26] MEDS: THIAMINE HCL 100 MG TABLET (FP) PO SCH (21:32)
[2022-10-26] MEDS: MELATONIN 5 MG TABLETS PO SCH (21:32)
[2022-10-26] MEDS: LIDOCAINE PATCH REMOVAL MC SCH (21:33)
[2022-10-26] MEDS: METHYL SALICYLATE/MENTHOL OINT 30 GM TUBE TP PRN (21:34)
[2022-10-27] MEDS: TOLNAFTATE 1% CREAM 15 GM TUBE TP SCH ×2 (09:54→21:57)
[2022-10-27] MEDS: FERROUS SO4 325 MG TABLET (FP) PO SCH (09:54)
[2022-10-27] MEDS: PRENATAL VITAMINS W/ FOLIC ACID TABLET (FP) PO SCH (09:54)
[2022-10-27] MEDS: METHYL SALICYLATE/MENTHOL OINT 30 GM TUBE TP PRN ×2 (10:21→21:22)
[2022-10-27] MEDS ORDERED: COLLOIDAL OATMEAL 1 BAR EACH TP PRN (12:17)
[2022-10-27] MEDS: MELATONIN 5 MG TABLETS PO SCH (21:21)
[2022-10-27] MEDS: SENNOSIDES 8.6MG TABLET (FP) PO SCH (21:21)
[2022-10-27] MEDS: THIAMINE HCL 100 MG TABLET (FP) PO SCH (21:21)
[2022-10-27] MEDS: METHOCARBAMOL 500 MG TABLET PO PRN (21:21)
[2022-10-27] MEDS: LIDOCAINE PATCH REMOVAL MC SCH (21:57)
[2022-10-28 07:11] VITALS: TEMP 98.1
[2022-10-28] MEDS: TOLNAFTATE 1% CREAM 15 GM TUBE TP SCH ×2 (10:06→21:21)
[2022-10-28] MEDS: FERROUS SO4 325 MG TABLET (FP) PO SCH (10:06)
[2022-10-28] MEDS: PRENATAL VITAMINS W/ FOLIC ACID TABLET (FP) PO SCH (10:06)
[2022-10-28] MEDS: THIAMINE HCL 100 MG TABLET (FP) PO SCH (21:21)
[2022-10-28] MEDS: MELATONIN 5 MG TABLETS PO SCH (21:21)
[2022-10-28] MEDS: LIDOCAINE PATCH REMOVAL MC SCH (21:21)
[2022-10-28] MEDS: METHOCARBAMOL 500 MG TABLET PO PRN (21:21)
[2022-10-28] MEDS: METHYL SALICYLATE/MENTHOL OINT 30 GM TUBE TP PRN (21:22)
[2022-10-28] MEDS: SENNOSIDES 8.6MG TABLET (FP) PO SCH (23:14)
[2022-10-29 07:08] VITALS: BP 107/67; PULSE 62; RESP 16
[2022-10-29] MEDS: FERROUS SO4 325 MG TABLET (FP) PO SCH (09:14)
[2022-10-29] MEDS: TOLNAFTATE 1% CREAM 15 GM TUBE TP SCH (09:14)
[2022-10-29] MEDS: PRENATAL VITAMINS W/ FOLIC ACID TABLET (FP) PO SCH (09:14)
== END 2022-10-29 12:35 | disposition home or self-care (01) | DRG 772 ==
LOC: YASAS 11:08 → Y5N 11:09
PROVIDERS: ADMIT Allergy & Immunology; ATTEND Psychiatry & Neurology Pain Medicine
PROC: HZ42ZZZ Group Counseling for Substance Abuse Treatment, Cognitive-Behavioral (ICD-10-PCS; principal; 2022-10-07)
DX: F10.20 Alcohol dependence, uncomplicated (principal); F10.282 Alcohol dependence with alcohol-induced sleep disorder; I73.9 Peripheral vascular disease, unspecified; I83.93 Asymptomatic varicose veins of bilateral lower extremities; B35.3 Tinea pedis; B35.1 Tinea unguium; R29.6 Repeated falls; Z91.81 History of falling; Z88.6 Allergy status to analgesic agent
CPT/HCPCS: 36415; 86803

== ENCOUNTER 2022-12-11 10:45 | Inpatient (IN) | payer OTHER ==
[2022-12-11 11:07] VITALS: BMI 26.7
[2022-12-11] MEDS ORDERED: LORazepam 1 MG TABLET PO PRN (11:43)
[2022-12-11] MEDS ORDERED: DICYCLOMINE HCL 10 MG CAPSULE PO PRN (11:43)
[2022-12-11] MEDS ORDERED: ONDANSETRON *ODT* 4 MG TABLET SL PRN (11:43)
[2022-12-11] MEDS ORDERED: NALOXONE HCL 0.4 MG/ML VIAL IM PRN (11:43)
[2022-12-11] MEDS ORDERED: guaiFENesin 600 MG TABLET.ER (FP) PO PRN (11:43)
[2022-12-11] MEDS ORDERED: NALOXONE HCL (KLOXXADO) 8 MG SPRAY NS PRN (11:43)
[2022-12-11] MEDS ORDERED: ACETAMINOPHEN 325 MG TABLET (FP) PO PRN (11:43)
[2022-12-11] MEDS ORDERED: LOPERAMIDE HCL 2 MG CAPSULE PO PRN (11:43)
[2022-12-11] MEDS ORDERED: IBUPROFEN 400 MG TABLET (FP) PO PRN (11:43)
[2022-12-11] MEDS ORDERED: IBUPROFEN 600 MG TABLET (FP) PO PRN (11:43)
[2022-12-11] MEDS ORDERED: BISMUTH SUBSALICYLATE 524 MG/30 ML PO PRN (11:43)
[2022-12-11] MEDS ORDERED: BENZOCAINE/MENTHOL (CHLORASEPTIC ) LOZENGE MM PRN (11:43)
[2022-12-11] MEDS ORDERED: MAG HYDROX/AL HYDROX/SIMETH 30 ML UNIT-DOSE CUP PO PRN (11:43)
[2022-12-11] MEDS ORDERED: MAGNESIUM HYDROX 2400MG/30ML ORAL SUSPENSION 30 ML CUP PO PRN (11:43)
[2022-12-11] MEDS ORDERED: BENZONATATE 200 MG CAPSULE PO PRN (11:43)
[2022-12-11] MEDS ORDERED: POLYETHYLENE GLYCOL (HEALTHYLAX) 3350 17 GM PACKET PO PRN (11:43)
[2022-12-11] MEDS: PRENATAL VITAMINS W/ FOLIC ACID TABLET (FP) PO SCH (15:03)
[2022-12-11] MEDS: LORazepam 2 MG TABLET PO SCH ×2 (17:04→22:22)
[2022-12-11 17:10] LABS: HEMATOCRIT 31.8 % (35.4-49); HEMOGLOBIN 10.7 GM/dL (11.7-16.9); MCH 27.4 pg (25.7-33.7); MCHC 33.6 g/dl (32.0-35.9); MEAN CELL VOLUME 81.5 fl (80-96); PLATELET COUNT 236 10^3/uL (134-434); RBC 3.91 M/mm3 (4.00-5.60); RDW 19.7 % (11.9-15.9); WHITE BLOOD COUNT 2.7 K/mm3 (4.0-10.0)
[2022-12-11 17:17] LABS: CALCIUM 8.7 mg/dL (8.5-10.1)
[2022-12-11 17:18] LABS: ALBUMIN 3.3 g/dl (3.4-5.0); BLOOD UREA NITROGEN 5.1 mg/dL (7-18)
[2022-12-11 17:21] LABS: CREATININE 0.6 mg/dL (0.55-1.3)
[2022-12-11 17:22] LABS: BILIRUBIN,TOTAL 0.5 mg/dL (0.2-1); TOT PROT 8.6 g/dl (6.4-8.2)
[2022-12-11] MEDS: MELATONIN 5 MG TABLETS PO SCH (22:22)
[2022-12-11] MEDS: THIAMINE HCL 100 MG TABLET (FP) PO SCH (22:22)
[2022-12-12] MEDS: LORazepam 2 MG TABLET PO SCH ×4 (05:42→22:00)
[2022-12-12] MEDS: METHOCARBAMOL 500 MG TABLET PO PRN ×2 (05:43→17:39)
[2022-12-12] MEDS: hydrOXYzine PAMOATE 25 MG CAPSULE (FP) PO PRN (10:19)
[2022-12-12] MEDS: PRENATAL VITAMINS W/ FOLIC ACID TABLET (FP) PO SCH (10:19)
[2022-12-12] MEDS: THIAMINE HCL 100 MG TABLET (FP) PO SCH (21:56)
[2022-12-12] MEDS: MELATONIN 5 MG TABLETS PO SCH (21:57)
[2022-12-12] MEDS: LACTULOSE 20 GM/30 ML UDC (FOR ORAL USE ONLY) PO SCH (22:15)
[2022-12-13] MEDS: LORazepam 1 MG TABLET PO SCH ×4 (05:23→22:00)
[2022-12-13] MEDS: METHOCARBAMOL 500 MG TABLET PO PRN (05:25)
[2022-12-13] MEDS: LACTULOSE 20 GM/30 ML UDC (FOR ORAL USE ONLY) PO SCH ×3 (05:28→22:00)
[2022-12-13] MEDS: PRENATAL VITAMINS W/ FOLIC ACID TABLET (FP) PO SCH (10:40)
[2022-12-13] MEDS: THIAMINE HCL 100 MG TABLET (FP) PO SCH (21:59)
[2022-12-13] MEDS: MELATONIN 5 MG TABLETS PO SCH (22:00)
[2022-12-14] MEDS ORDERED: LORazepam 0.5 MG TABLET PO PRN
[2022-12-14] MEDS: LORazepam 0.5 MG TABLET PO SCH ×4 (05:20→22:06)
[2022-12-14] MEDS: LACTULOSE 20 GM/30 ML UDC (FOR ORAL USE ONLY) PO SCH ×3 (05:21→22:08)
[2022-12-14] MEDS: hydrOXYzine PAMOATE 25 MG CAPSULE (FP) PO PRN (10:18)
[2022-12-14] MEDS: PRENATAL VITAMINS W/ FOLIC ACID TABLET (FP) PO SCH (10:18)
[2022-12-14] MEDS: METHOCARBAMOL 500 MG TABLET PO PRN ×2 (10:18→22:06)
[2022-12-14 17:24] VITALS: RESP 16
[2022-12-14] MEDS ORDERED: METHYL SALICYLATE/MENTHOL OINT 30 GM TUBE TP PRN (20:23)
[2022-12-14] MEDS: MELATONIN 5 MG TABLETS PO SCH (22:04)
[2022-12-14] MEDS: THIAMINE HCL 100 MG TABLET (FP) PO SCH (22:06)
[2022-12-15] MEDS ORDERED: LORazepam 0.5 MG TABLET PO ONE (05:00)
[2022-12-15] MEDS: LACTULOSE 20 GM/30 ML UDC (FOR ORAL USE ONLY) PO SCH (05:12)
[2022-12-15] MEDS: METHOCARBAMOL 500 MG TABLET PO PRN (05:15)
[2022-12-15] MEDS: PRENATAL VITAMINS W/ FOLIC ACID TABLET (FP) PO SCH (10:11)
[2022-12-15 11:40] VITALS: BP 111/66; PULSE 73; TEMP 97.7
== END 2022-12-15 12:20 | disposition other institution (70) | DRG 775 ==
LOC: YASAS 10:45 → Y6N 11:58
PROVIDERS: ADMIT Allergy & Immunology; ATTEND Surgery
PROC: HZ2ZZZZ Detoxification Services for Substance Abuse Treatment (ICD-10-PCS; principal; 2022-12-11)
DX: F10.230 Alcohol dependence with withdrawal, uncomplicated (principal); F13.20 Sedative, hypnotic or anxiolytic dependence, uncomplicated; F12.20 Cannabis dependence, uncomplicated; F10.282 Alcohol dependence with alcohol-induced sleep disorder; D50.9 Iron deficiency anemia, unspecified; R16.0 Hepatomegaly, not elsewhere classified; R79.89 Other specified abnormal findings of blood chemistry; Z59.02 Unsheltered homelessness; Z88.6 Allergy status to analgesic agent
CPT/HCPCS: 36415; 80053; 82140; 83036; 85027; 86780; 87811; C9803-CS; U0003; U0005

== ENCOUNTER 2022-12-15 12:30 | Inpatient (IN) | payer OTHER ==
[2022-12-15] MEDS ORDERED: NALOXONE HCL (KLOXXADO) 8 MG SPRAY NS PRN (13:57)
[2022-12-15] MEDS ORDERED: NICOTINE 10 MG CARTRIDGE (INHALER) IH PRN (13:57)
[2022-12-15] MEDS ORDERED: BENZONATATE 200 MG CAPSULE PO PRN (13:57)
[2022-12-15] MEDS ORDERED: BENZOCAINE/MENTHOL (CHLORASEPTIC ) LOZENGE MM PRN (13:57)
[2022-12-15] MEDS ORDERED: LOPERAMIDE HCL 2 MG CAPSULE PO PRN (13:57)
[2022-12-15] MEDS ORDERED: NICOTINE 14 MG/24 HOURS TOPICAL PATCH TD PRN (13:57)
[2022-12-15] MEDS ORDERED: MAG HYDROX/AL HYDROX/SIMETH 30 ML UNIT-DOSE CUP PO PRN (13:57)
[2022-12-15] MEDS ORDERED: MAGNESIUM HYDROX 2400MG/30ML ORAL SUSPENSION 30 ML CUP PO PRN (13:57)
[2022-12-15] MEDS ORDERED: POLYETHYLENE GLYCOL (HEALTHYLAX) 3350 17 GM PACKET PO PRN (13:57)
[2022-12-15] MEDS ORDERED: guaiFENesin 600 MG TABLET.ER (FP) PO PRN (13:57)
[2022-12-15] MEDS ORDERED: NALOXONE HCL 0.4 MG/ML VIAL IVPUSH PRN (13:57)
[2022-12-15] MEDS: THIAMINE HCL 100 MG TABLET (FP) PO SCH (21:19)
[2022-12-15] MEDS: METHYL SALICYLATE/MENTHOL OINT 30 GM TUBE TP SCH (21:19)
[2022-12-15] MEDS: MELATONIN 5 MG TABLETS PO SCH (21:19)
[2022-12-15] MEDS: hydrOXYzine PAMOATE 25 MG CAPSULE (FP) PO PRN (21:20)
[2022-12-16] MEDS: METHYL SALICYLATE/MENTHOL OINT 30 GM TUBE TP SCH ×2 (09:38→21:06)
[2022-12-16] MEDS: PRENATAL VITAMINS W/ FOLIC ACID TABLET (FP) PO SCH (09:38)
[2022-12-16] MEDS: METHOCARBAMOL 500 MG TABLET PO PRN (09:42)
[2022-12-16 12:50] LABS: HIV INTERPRETATION NEGATIVE (NEGATIVE)
[2022-12-16] MEDS: THIAMINE HCL 100 MG TABLET (FP) PO SCH (21:06)
[2022-12-16] MEDS: MELATONIN 5 MG TABLETS PO SCH (21:06)
[2022-12-16] MEDS: hydrOXYzine PAMOATE 25 MG CAPSULE (FP) PO PRN (21:07)
[2022-12-17] MEDS: PRENATAL VITAMINS W/ FOLIC ACID TABLET (FP) PO SCH (09:55)
[2022-12-17] MEDS: METHOCARBAMOL 500 MG TABLET PO PRN (09:56)
[2022-12-17] MEDS: METHYL SALICYLATE/MENTHOL OINT 30 GM TUBE TP SCH ×2 (09:56→21:08)
[2022-12-17] MEDS: MELATONIN 5 MG TABLETS PO SCH (21:09)
[2022-12-17] MEDS: THIAMINE HCL 100 MG TABLET (FP) PO SCH (21:09)
[2022-12-18] MEDS: FERROUS SO4 325 MG TABLET (FP) PO SCH (07:18)
[2022-12-18] MEDS: PRENATAL VITAMINS W/ FOLIC ACID TABLET (FP) PO SCH (09:49)
[2022-12-18] MEDS: METHYL SALICYLATE/MENTHOL OINT 30 GM TUBE TP SCH ×2 (09:49→21:01)
[2022-12-18] MEDS: LACTULOSE 20 GM/30 ML UDC (FOR ORAL USE ONLY) PO SCH ×2 (13:17→21:01)
[2022-12-18] MEDS: MELATONIN 5 MG TABLETS PO SCH (21:01)
[2022-12-18] MEDS: THIAMINE HCL 100 MG TABLET (FP) PO SCH (21:01)
[2022-12-19] MEDS: LACTULOSE 20 GM/30 ML UDC (FOR ORAL USE ONLY) PO SCH ×3 (06:03→21:17)
[2022-12-19] MEDS: FERROUS SO4 325 MG TABLET (FP) PO SCH (07:07)
[2022-12-19] MEDS: METHYL SALICYLATE/MENTHOL OINT 30 GM TUBE TP SCH ×2 (09:26→21:18)
[2022-12-19] MEDS: METHOCARBAMOL 500 MG TABLET PO PRN ×2 (09:26→21:17)
[2022-12-19] MEDS: PRENATAL VITAMINS W/ FOLIC ACID TABLET (FP) PO SCH (09:26)
[2022-12-19] MEDS: MELATONIN 5 MG TABLETS PO SCH (21:17)
[2022-12-19] MEDS: THIAMINE HCL 100 MG TABLET (FP) PO SCH (21:17)
[2022-12-20] MEDS: LACTULOSE 20 GM/30 ML UDC (FOR ORAL USE ONLY) PO SCH ×3 (06:09→21:02)
[2022-12-20] MEDS: FERROUS SO4 325 MG TABLET (FP) PO SCH (07:41)
[2022-12-20] MEDS: PRENATAL VITAMINS W/ FOLIC ACID TABLET (FP) PO SCH (09:52)
[2022-12-20] MEDS: METHYL SALICYLATE/MENTHOL OINT 30 GM TUBE TP SCH ×2 (09:53→21:03)
[2022-12-20] MEDS: METHOCARBAMOL 500 MG TABLET PO PRN (09:53)
[2022-12-20] MEDS ORDERED: COLLOIDAL OATMEAL 1 BAR EACH TP PRN (13:41)
[2022-12-20] MEDS: TOLNAFTATE 1% CREAM 15 GM TUBE TP SCH ×2 (14:32→21:03)
[2022-12-20] MEDS: MELATONIN 5 MG TABLETS PO SCH (21:02)
[2022-12-20] MEDS: THIAMINE HCL 100 MG TABLET (FP) PO SCH (21:02)
[2022-12-21] MEDS: LACTULOSE 20 GM/30 ML UDC (FOR ORAL USE ONLY) PO SCH ×3 (06:13→21:01)
[2022-12-21] MEDS: FERROUS SO4 325 MG TABLET (FP) PO SCH (07:17)
[2022-12-21] MEDS: METHOCARBAMOL 500 MG TABLET PO PRN ×2 (09:43→21:01)
[2022-12-21] MEDS: PRENATAL VITAMINS W/ FOLIC ACID TABLET (FP) PO SCH (09:43)
[2022-12-21] MEDS: METHYL SALICYLATE/MENTHOL OINT 30 GM TUBE TP SCH ×2 (09:43→21:01)
[2022-12-21] MEDS: TOLNAFTATE 1% CREAM 15 GM TUBE TP SCH ×2 (09:44→21:03)
[2022-12-21] MEDS: MELATONIN 5 MG TABLETS PO SCH (21:01)
[2022-12-21] MEDS: THIAMINE HCL 100 MG TABLET (FP) PO SCH (21:01)
[2022-12-22] MEDS: LACTULOSE 20 GM/30 ML UDC (FOR ORAL USE ONLY) PO SCH ×3 (06:12→21:05)
[2022-12-22] MEDS: FERROUS SO4 325 MG TABLET (FP) PO SCH (07:05)
[2022-12-22] MEDS: PRENATAL VITAMINS W/ FOLIC ACID TABLET (FP) PO SCH (09:34)
[2022-12-22] MEDS: METHYL SALICYLATE/MENTHOL OINT 30 GM TUBE TP SCH ×2 (09:34→21:04)
[2022-12-22] MEDS: TOLNAFTATE 1% CREAM 15 GM TUBE TP SCH ×2 (09:35→21:06)
[2022-12-22] MEDS: METHOCARBAMOL 500 MG TABLET PO PRN (09:36)
[2022-12-22] MEDS: THIAMINE HCL 100 MG TABLET (FP) PO SCH (21:05)
[2022-12-22] MEDS: MELATONIN 5 MG TABLETS PO SCH (21:06)
[2022-12-23] MEDS: LACTULOSE 20 GM/30 ML UDC (FOR ORAL USE ONLY) PO SCH ×3 (06:12→21:03)
[2022-12-23] MEDS: FERROUS SO4 325 MG TABLET (FP) PO SCH (07:40)
[2022-12-23] MEDS: PRENATAL VITAMINS W/ FOLIC ACID TABLET (FP) PO SCH (09:31)
[2022-12-23] MEDS: METHYL SALICYLATE/MENTHOL OINT 30 GM TUBE TP SCH ×2 (11:15→21:03)
[2022-12-23] MEDS: TOLNAFTATE 1% CREAM 15 GM TUBE TP SCH ×2 (11:15→21:03)
[2022-12-23] MEDS: MELATONIN 5 MG TABLETS PO SCH (21:02)
[2022-12-23] MEDS: THIAMINE HCL 100 MG TABLET (FP) PO SCH (21:03)
[2022-12-24] MEDS: LACTULOSE 20 GM/30 ML UDC (FOR ORAL USE ONLY) PO SCH ×3 (06:07→21:20)
[2022-12-24] MEDS: hydrOXYzine PAMOATE 25 MG CAPSULE (FP) PO PRN (07:56)
[2022-12-24] MEDS: FERROUS SO4 325 MG TABLET (FP) PO SCH (07:58)
[2022-12-24] MEDS: PRENATAL VITAMINS W/ FOLIC ACID TABLET (FP) PO SCH (09:25)
[2022-12-24] MEDS: TOLNAFTATE 1% CREAM 15 GM TUBE TP SCH ×2 (09:26→21:20)
[2022-12-24] MEDS: METHYL SALICYLATE/MENTHOL OINT 30 GM TUBE TP SCH ×2 (09:26→21:21)
[2022-12-24] MEDS ORDERED: diphenhydrAMINE HCL 25 MG CAPSULE (FP) PO PRN (12:33)
[2022-12-24] MEDS: THIAMINE HCL 100 MG TABLET (FP) PO SCH (21:20)
[2022-12-24] MEDS: MELATONIN 5 MG TABLETS PO SCH (21:20)
[2022-12-25] MEDS: LACTULOSE 20 GM/30 ML UDC (FOR ORAL USE ONLY) PO SCH ×3 (06:08→21:07)
[2022-12-25] MEDS: FERROUS SO4 325 MG TABLET (FP) PO SCH (07:43)
[2022-12-25] MEDS: PRENATAL VITAMINS W/ FOLIC ACID TABLET (FP) PO SCH (09:50)
[2022-12-25] MEDS: METHYL SALICYLATE/MENTHOL OINT 30 GM TUBE TP SCH ×2 (09:50→21:51)
[2022-12-25] MEDS: TOLNAFTATE 1% CREAM 15 GM TUBE TP SCH ×2 (09:50→21:07)
[2022-12-25] MEDS: THIAMINE HCL 100 MG TABLET (FP) PO SCH (21:07)
[2022-12-25] MEDS: MELATONIN 5 MG TABLETS PO SCH (21:07)
[2022-12-26] MEDS: LACTULOSE 20 GM/30 ML UDC (FOR ORAL USE ONLY) PO SCH ×3 (05:59→21:11)
[2022-12-26] MEDS: FERROUS SO4 325 MG TABLET (FP) PO SCH (07:51)
[2022-12-26] MEDS: PRENATAL VITAMINS W/ FOLIC ACID TABLET (FP) PO SCH (09:36)
[2022-12-26] MEDS: METHYL SALICYLATE/MENTHOL OINT 30 GM TUBE TP SCH ×2 (09:36→21:11)
[2022-12-26] MEDS: TOLNAFTATE 1% CREAM 15 GM TUBE TP SCH ×2 (09:36→21:11)
[2022-12-26] MEDS: METHOCARBAMOL 500 MG TABLET PO PRN (09:38)
[2022-12-26] MEDS: THIAMINE HCL 100 MG TABLET (FP) PO SCH (21:11)
[2022-12-26] MEDS: MELATONIN 5 MG TABLETS PO SCH (21:11)
[2022-12-27] MEDS: LACTULOSE 20 GM/30 ML UDC (FOR ORAL USE ONLY) PO SCH ×3 (06:04→21:02)
[2022-12-27] MEDS: FERROUS SO4 325 MG TABLET (FP) PO SCH (07:06)
[2022-12-27] MEDS: METHYL SALICYLATE/MENTHOL OINT 30 GM TUBE TP SCH ×2 (09:29→21:02)
[2022-12-27] MEDS: PRENATAL VITAMINS W/ FOLIC ACID TABLET (FP) PO SCH (09:30)
[2022-12-27] MEDS: TOLNAFTATE 1% CREAM 15 GM TUBE TP SCH ×2 (09:30→21:03)
[2022-12-27] MEDS: MELATONIN 5 MG TABLETS PO SCH (21:03)
[2022-12-27] MEDS: THIAMINE HCL 100 MG TABLET (FP) PO SCH (21:03)
[2022-12-28] MEDS: LACTULOSE 20 GM/30 ML UDC (FOR ORAL USE ONLY) PO SCH ×3 (06:05→21:05)
[2022-12-28] MEDS: FERROUS SO4 325 MG TABLET (FP) PO SCH (07:02)
[2022-12-28] MEDS: PRENATAL VITAMINS W/ FOLIC ACID TABLET (FP) PO SCH (09:39)
[2022-12-28] MEDS: METHOCARBAMOL 500 MG TABLET PO PRN (09:39)
[2022-12-28] MEDS: TOLNAFTATE 1% CREAM 15 GM TUBE TP SCH ×2 (09:40→21:06)
[2022-12-28] MEDS: METHYL SALICYLATE/MENTHOL OINT 30 GM TUBE TP SCH ×2 (09:40→21:05)
[2022-12-28] MEDS: MELATONIN 5 MG TABLETS PO SCH (21:05)
[2022-12-28] MEDS: THIAMINE HCL 100 MG TABLET (FP) PO SCH (21:05)
[2022-12-29] MEDS: LACTULOSE 20 GM/30 ML UDC (FOR ORAL USE ONLY) PO SCH ×3 (06:26→21:06)
[2022-12-29] MEDS: FERROUS SO4 325 MG TABLET (FP) PO SCH (08:25)
[2022-12-29] MEDS: PRENATAL VITAMINS W/ FOLIC ACID TABLET (FP) PO SCH (09:39)
[2022-12-29] MEDS: METHYL SALICYLATE/MENTHOL OINT 30 GM TUBE TP SCH ×2 (09:40→21:07)
[2022-12-29] MEDS: TOLNAFTATE 1% CREAM 15 GM TUBE TP SCH ×2 (09:40→21:45)
[2022-12-29] MEDS: THIAMINE HCL 100 MG TABLET (FP) PO SCH (21:06)
[2022-12-29] MEDS: MELATONIN 5 MG TABLETS PO SCH (21:06)
[2022-12-30] MEDS: LACTULOSE 20 GM/30 ML UDC (FOR ORAL USE ONLY) PO SCH ×3 (06:04→21:12)
[2022-12-30] MEDS: FERROUS SO4 325 MG TABLET (FP) PO SCH (07:40)
[2022-12-30] MEDS: METHOCARBAMOL 500 MG TABLET PO PRN (09:38)
[2022-12-30] MEDS: PRENATAL VITAMINS W/ FOLIC ACID TABLET (FP) PO SCH (09:38)
[2022-12-30] MEDS: TOLNAFTATE 1% CREAM 15 GM TUBE TP SCH ×2 (09:38→21:39)
[2022-12-30] MEDS: METHYL SALICYLATE/MENTHOL OINT 30 GM TUBE TP SCH ×2 (09:38→21:14)
[2022-12-30] MEDS: MELATONIN 5 MG TABLETS PO SCH (21:12)
[2022-12-30] MEDS: THIAMINE HCL 100 MG TABLET (FP) PO SCH (21:12)
[2022-12-31] MEDS: LACTULOSE 20 GM/30 ML UDC (FOR ORAL USE ONLY) PO SCH ×3 (06:13→21:24)
[2022-12-31] MEDS: FERROUS SO4 325 MG TABLET (FP) PO SCH (07:54)
[2022-12-31] MEDS: METHYL SALICYLATE/MENTHOL OINT 30 GM TUBE TP SCH ×2 (09:35→21:24)
[2022-12-31] MEDS: TOLNAFTATE 1% CREAM 15 GM TUBE TP SCH ×2 (09:36→21:25)
[2022-12-31] MEDS: PRENATAL VITAMINS W/ FOLIC ACID TABLET (FP) PO SCH (09:36)
[2022-12-31] MEDS: MELATONIN 5 MG TABLETS PO SCH (21:24)
[2022-12-31] MEDS: THIAMINE HCL 100 MG TABLET (FP) PO SCH (21:25)
[2023-01-01] MEDS: LACTULOSE 20 GM/30 ML UDC (FOR ORAL USE ONLY) PO SCH ×3 (05:56→21:21)
[2023-01-01] MEDS: FERROUS SO4 325 MG TABLET (FP) PO SCH (07:38)
[2023-01-01] MEDS: METHYL SALICYLATE/MENTHOL OINT 30 GM TUBE TP SCH ×2 (09:58→21:22)
[2023-01-01] MEDS: PRENATAL VITAMINS W/ FOLIC ACID TABLET (FP) PO SCH (09:58)
[2023-01-01] MEDS: TOLNAFTATE 1% CREAM 15 GM TUBE TP SCH ×2 (09:59→21:22)
[2023-01-01] MEDS: THIAMINE HCL 100 MG TABLET (FP) PO SCH (21:21)
[2023-01-01] MEDS: MELATONIN 5 MG TABLETS PO SCH (21:21)
[2023-01-02] MEDS: LACTULOSE 20 GM/30 ML UDC (FOR ORAL USE ONLY) PO SCH ×3 (06:19→21:04)
[2023-01-02] MEDS: FERROUS SO4 325 MG TABLET (FP) PO SCH (07:41)
[2023-01-02] MEDS: PRENATAL VITAMINS W/ FOLIC ACID TABLET (FP) PO SCH (09:50)
[2023-01-02] MEDS: METHYL SALICYLATE/MENTHOL OINT 30 GM TUBE TP SCH ×2 (09:51→21:04)
[2023-01-02] MEDS: TOLNAFTATE 1% CREAM 15 GM TUBE TP SCH ×2 (09:51→21:05)
[2023-01-02] MEDS: MELATONIN 5 MG TABLETS PO SCH (21:04)
[2023-01-02] MEDS: THIAMINE HCL 100 MG TABLET (FP) PO SCH (21:04)
[2023-01-03] MEDS: LACTULOSE 20 GM/30 ML UDC (FOR ORAL USE ONLY) PO SCH ×3 (06:02→21:04)
[2023-01-03] MEDS: FERROUS SO4 325 MG TABLET (FP) PO SCH (07:56)
[2023-01-03] MEDS: PRENATAL VITAMINS W/ FOLIC ACID TABLET (FP) PO SCH (09:38)
[2023-01-03] MEDS: TOLNAFTATE 1% CREAM 15 GM TUBE TP SCH ×2 (09:39→21:04)
[2023-01-03] MEDS: METHYL SALICYLATE/MENTHOL OINT 30 GM TUBE TP SCH ×2 (09:39→21:04)
[2023-01-03] MEDS: MELATONIN 5 MG TABLETS PO SCH (21:03)
[2023-01-03] MEDS: THIAMINE HCL 100 MG TABLET (FP) PO SCH (21:03)
[2023-01-04] MEDS: LACTULOSE 20 GM/30 ML UDC (FOR ORAL USE ONLY) PO SCH (06:23)
[2023-01-04 06:49] VITALS: BP 119/82; PULSE 66; RESP 18; TEMP 97.5
[2023-01-04] MEDS: FERROUS SO4 325 MG TABLET (FP) PO SCH (07:04)
[2023-01-04] MEDS: METHYL SALICYLATE/MENTHOL OINT 30 GM TUBE TP SCH (09:25)
[2023-01-04] MEDS: PRENATAL VITAMINS W/ FOLIC ACID TABLET (FP) PO SCH (09:25)
[2023-01-04] MEDS: TOLNAFTATE 1% CREAM 15 GM TUBE TP SCH (09:25)
== END 2023-01-04 11:20 | disposition home or self-care (01) | DRG 772 ==
LOC: YASAS 12:30 → Y5N 12:31
PROVIDERS: ADMIT Allergy & Immunology; ATTEND Psychiatry & Neurology Pain Medicine
PROC: HZ42ZZZ Group Counseling for Substance Abuse Treatment, Cognitive-Behavioral (ICD-10-PCS; principal; 2022-12-15)
DX: F10.20 Alcohol dependence, uncomplicated (principal); F12.10 Cannabis abuse, uncomplicated; E72.20 Disorder of urea cycle metabolism, unspecified; D64.9 Anemia, unspecified; G47.00 Insomnia, unspecified; Z88.6 Allergy status to analgesic agent
CPT/HCPCS: 36415; 82140; 86803; 87389

== ENCOUNTER 2023-05-13 21:09 | Inpatient (IN) | payer OTHER ==
[2023-05-13 21:45] VITALS: BMI 20.9
[2023-05-13] MEDS ORDERED: BENZOCAINE/MENTHOL (CHLORASEPTIC ) LOZENGE MM PRN (22:22)
[2023-05-13] MEDS ORDERED: BENZONATATE 200 MG CAPSULE PO PRN (22:22)
[2023-05-13] MEDS ORDERED: ONDANSETRON *ODT* 4 MG TABLET SL PRN (22:22)
[2023-05-13] MEDS ORDERED: chlordiazePOXIDE HCL 25 MG CAPSULE PO PRN (22:22)
[2023-05-13] MEDS ORDERED: LOPERAMIDE HCL 2 MG CAPSULE PO PRN (22:22)
[2023-05-13] MEDS ORDERED: POLYETHYLENE GLYCOL (HEALTHYLAX) 3350 17 GM PACKET PO PRN (22:22)
[2023-05-13] MEDS ORDERED: MAG HYDROX/AL HYDROX/SIMETH 30 ML UNIT-DOSE CUP PO PRN (22:22)
[2023-05-13] MEDS ORDERED: DICYCLOMINE HCL 10 MG CAPSULE PO PRN (22:22)
[2023-05-13] MEDS ORDERED: NALOXONE HCL 0.4 MG/ML VIAL IM PRN (22:22)
[2023-05-13] MEDS ORDERED: NALOXONE HCL (KLOXXADO) 8 MG SPRAY NS PRN (22:22)
[2023-05-13] MEDS ORDERED: BISMUTH SUBSALICYLATE 524 MG/30 ML PO PRN (22:22)
[2023-05-13] MEDS ORDERED: MAGNESIUM HYDROX 2400MG/30ML ORAL SUSPENSION 30 ML CUP PO PRN (22:22)
[2023-05-13] MEDS ORDERED: guaiFENesin 600 MG TABLET.ER (FP) PO PRN (22:22)
[2023-05-13] MEDS ORDERED: chlordiazePOXIDE HCL 25 MG CAPSULE ONE (23:51)
[2023-05-13] MEDS: chlordiazePOXIDE HCL 25 MG CAPSULE PO SCH (23:53)
[2023-05-14] MEDS: chlordiazePOXIDE HCL 25 MG CAPSULE PO SCH ×4 (05:25→22:28)
[2023-05-14] MEDS ORDERED: COLLOIDAL OATMEAL 1 BAR EACH TP PRN (09:26)
[2023-05-14] MEDS: PRENATAL VITAMINS W/ FOLIC ACID TABLET (FP) PO SCH (10:34)
[2023-05-14 10:42] LABS: HEMATOCRIT 36.9 % (35.4-49); HEMOGLOBIN 12.4 GM/dL (11.7-16.9); MCH 28.9 pg (25.7-33.7); MCHC 33.5 g/dl (32.0-35.9); MEAN PLT VOLUME 9.4 fl (7.5-11.1); PLATELET COUNT 108 10^3/uL (134-434); RBC 4.28 M/mm3 (4.00-5.60); RDW 16.3 % (11.9-15.9); WHITE BLOOD COUNT 3.6 K/mm3 (4.0-10.0)
[2023-05-14 10:57] LABS: POTASSIUM 4.1 mmol/L (3.5-5.1)
[2023-05-14 11:00] LABS: CALCIUM 8.8 mg/dL (8.5-10.1)
[2023-05-14 11:01] LABS: ALBUMIN 3.2 g/dl (3.4-5.0); BLOOD UREA NITROGEN 5.2 mg/dL (7-18)
[2023-05-14 11:04] LABS: CREATININE 0.6 mg/dL (0.55-1.3)
[2023-05-14 11:06] LABS: BILIRUBIN,TOTAL 1.7 mg/dL (0.2-1); TOT PROT 8.8 g/dl (6.4-8.2)
[2023-05-14] MEDS: THIAMINE HCL 100 MG TABLET (FP) PO SCH (22:28)
[2023-05-14] MEDS: MELATONIN 5 MG TABLETS PO SCH (22:30)
[2023-05-15] MEDS ORDERED: chlordiazePOXIDE HCL 25 MG CAPSULE PO SCH (05:00)
[2023-05-15] MEDS ORDERED: LORazepam 1 MG TABLET PO PRN (09:19)
[2023-05-15] MEDS: PRENATAL VITAMINS W/ FOLIC ACID TABLET (FP) PO SCH (10:26)
[2023-05-15] MEDS: LORazepam 2 MG TABLET PO SCH ×3 (10:27→22:27)
[2023-05-15] MEDS: LACTULOSE 20 GM/30 ML UDC (FOR ORAL USE ONLY) PO SCH ×3 (13:14→22:27)
[2023-05-15] MEDS: THIAMINE HCL 100 MG TABLET (FP) PO SCH (22:27)
[2023-05-15] MEDS: MELATONIN 5 MG TABLETS PO SCH (22:27)
[2023-05-16] MEDS ORDERED: chlordiazePOXIDE HCL 10 MG CAPSULE PO PRN
[2023-05-16] MEDS ORDERED: chlordiazePOXIDE HCL 10 MG CAPSULE PO SCH (05:00)
[2023-05-16] MEDS: LORazepam 1 MG TABLET PO SCH ×4 (05:34→22:09)
[2023-05-16] MEDS: PRENATAL VITAMINS W/ FOLIC ACID TABLET (FP) PO SCH (10:15)
[2023-05-16] MEDS: LACTULOSE 20 GM/30 ML UDC (FOR ORAL USE ONLY) PO SCH ×4 (10:15→22:08)
[2023-05-16] MEDS: MELATONIN 5 MG TABLETS PO SCH (22:08)
[2023-05-16] MEDS: THIAMINE HCL 100 MG TABLET (FP) PO SCH (22:08)
[2023-05-17] MEDS ORDERED: chlordiazePOXIDE HCL 10 MG CAPSULE PO SCH (05:00)
[2023-05-17] MEDS: LORazepam 0.5 MG TABLET PO SCH ×4 (05:42→22:26)
[2023-05-17] MEDS: LACTULOSE 20 GM/30 ML UDC (FOR ORAL USE ONLY) PO SCH ×4 (10:15→22:25)
[2023-05-17] MEDS: PRENATAL VITAMINS W/ FOLIC ACID TABLET (FP) PO SCH (10:15)
[2023-05-17 10:27] LABS: BILIRUBIN,TOTAL 0.6 mg/dL (0.2-1)
[2023-05-17] MEDS: THIAMINE HCL 100 MG TABLET (FP) PO SCH (22:25)
[2023-05-17] MEDS: MELATONIN 5 MG TABLETS PO SCH (22:25)
[2023-05-18] MEDS ORDERED: chlordiazePOXIDE HCL 10 MG CAPSULE PO ONE (05:00)
[2023-05-18] MEDS ORDERED: LORazepam 0.5 MG TABLET PO ONE (05:00)
[2023-05-18 09:50] VITALS: BP 102/68; PULSE 84; RESP 16; TEMP 97.5
[2023-05-18] MEDS: PRENATAL VITAMINS W/ FOLIC ACID TABLET (FP) PO SCH (10:09)
[2023-05-18] MEDS: LACTULOSE 20 GM/30 ML UDC (FOR ORAL USE ONLY) PO SCH (10:09)
== END 2023-05-18 12:10 | disposition home or self-care (01) | DRG 775 ==
LOC: YASAS 21:09 → Y6N 23:52
PROVIDERS: ADMIT Allergy & Immunology; ATTEND Surgery
PROC: HZ2ZZZZ Detoxification Services for Substance Abuse Treatment (ICD-10-PCS; principal; 2023-05-13)
DX: F10.230 Alcohol dependence with withdrawal, uncomplicated (principal); F10.282 Alcohol dependence with alcohol-induced sleep disorder; R79.89 Other specified abnormal findings of blood chemistry; Z74.1 Need for assistance with personal care; Z91.81 History of falling; Z99.89 Dependence on other enabling machines and devices; Z88.0 Allergy status to penicillin; Z87.891 Personal history of nicotine dependence
CPT/HCPCS: 36415; 80053; 82140; 82247; 84450; 85027; 86780; 87635; 93005; 93010

== ENCOUNTER 2023-09-04 14:48 | Inpatient (IN) | payer OTHER ==
[2023-09-04 15:35] VITALS: BMI 22.3
[2023-09-04] MEDS ORDERED: ONDANSETRON *ODT* 4 MG TABLET SL PRN (17:55)
[2023-09-04] MEDS ORDERED: BISMUTH SUBSALICYLATE 524 MG/30 ML PO PRN (17:55)
[2023-09-04] MEDS ORDERED: BENZONATATE 200 MG CAPSULE PO PRN (17:55)
[2023-09-04] MEDS ORDERED: DICYCLOMINE HCL 10 MG CAPSULE PO PRN (17:55)
[2023-09-04] MEDS ORDERED: NICOTINE POLACRILEX 2 MG GUM BUC PRN (17:55)
[2023-09-04] MEDS ORDERED: METHOCARBAMOL 500 MG TABLET PO PRN (17:55)
[2023-09-04] MEDS ORDERED: P-EPHED 60MG/TRIPROLIDI 2.5MG TABLET PO PRN (17:55)
[2023-09-04] MEDS ORDERED: guaiFENesin 600 MG TABLET.ER (FP) PO PRN (17:55)
[2023-09-04] MEDS ORDERED: LOPERAMIDE HCL 2 MG CAPSULE PO PRN (17:55)
[2023-09-04] MEDS ORDERED: BENZOCAINE/MENTHOL (CHLORASEPTIC ) LOZENGE MM PRN (17:55)
[2023-09-04] MEDS ORDERED: IBUPROFEN 600 MG TABLET (FP) PO PRN (17:55)
[2023-09-04] MEDS ORDERED: MAG HYDROX/AL HYDROX/SIMETH 30 ML UNIT-DOSE CUP PO PRN (17:55)
[2023-09-04] MEDS ORDERED: MAGNESIUM HYDROX 2400MG/30ML ORAL SUSPENSION 30 ML CUP PO PRN (17:55)
[2023-09-04] MEDS ORDERED: POLYETHYLENE GLYCOL (HEALTHYLAX) 3350 17 GM PACKET PO PRN (17:55)
[2023-09-04] MEDS: MELATONIN 5 MG TABLETS PO SCH (22:31)
[2023-09-04] MEDS: THIAMINE HCL 100 MG TABLET (FP) PO SCH (22:31)
[2023-09-05 10:37] LABS: CHLORIDE 106 mmol/L (98-107); POTASSIUM 3.8 mmol/L (3.5-5.1); SODIUM 139 mmol/L (136-145)
[2023-09-05] MEDS: PRENATAL VITAMINS W/ FOLIC ACID TABLET (FP) PO SCH ×2 (10:38→10:40)
[2023-09-05 10:46] LABS: BLOOD UREA NITROGEN 7.4 mg/dL (7-18); GLUCOSE,RANDOM 140 mg/dL (74-106)
[2023-09-05 10:47] LABS: ANION GAP 5 mmol/L (4-13); CO2 27 mmol/L (21-32)
[2023-09-05 10:49] LABS: CALCIUM 8.9 mg/dL (8.5-10.1); CREATININE 0.5 mg/dL (0.55-1.3)
[2023-09-05 10:50] LABS: ALBUMIN 3.3 g/dl (3.4-5.0); BILIRUBIN,TOTAL 0.8 mg/dL (0.2-1); HEMATOCRIT 34.5 % (35.4-49); HEMOGLOBIN 11.3 GM/dL (11.7-16.9); MCHC 32.8 g/dl (32.0-35.9); MEAN CELL VOLUME 85.4 fl (80-96); MEAN PLT VOLUME 8.9 fl (7.5-11.1); PLATELET COUNT 161 10^3/uL (134-434); RBC 4.04 M/mm3 (4.00-5.60); RDW 15.2 % (11.9-15.9); WHITE BLOOD COUNT 3.1 K/mm3 (4.0-10.0)
[2023-09-05 10:52] LABS: SGPT/ALT 37 U/L (13-61)
[2023-09-05 10:53] LABS: SGOT/AST 77 U/L (15-37)
[2023-09-05 10:55] LABS: ALK PHOS 94 U/L (45-117); TOT PROT 8.4 g/dl (6.4-8.2)
[2023-09-05] MEDS ORDERED: diazePAM 5 MG TABLET PO PRN (11:05)
[2023-09-05] MEDS: diazePAM 5 MG TABLET PO SCH ×3 (11:52→22:05)
[2023-09-05] MEDS ORDERED: COLLOIDAL OATMEAL 1 BAR EACH TP PRN (14:21)
[2023-09-05] MEDS: THIAMINE HCL 100 MG TABLET (FP) PO SCH (22:05)
[2023-09-05] MEDS: MELATONIN 5 MG TABLETS PO SCH (22:05)
[2023-09-05] MEDS: MINERAL OIL/PET HY-PHL TOPICAL OINTMENT 454 GM JAR TP SCH (22:07)
[2023-09-06] MEDS: diazePAM 5 MG TABLET PO SCH ×4 (05:29→22:06)
[2023-09-06] MEDS: PRENATAL VITAMINS W/ FOLIC ACID TABLET (FP) PO SCH (10:13)
[2023-09-06] MEDS: MINERAL OIL/PET HY-PHL TOPICAL OINTMENT 454 GM JAR TP SCH ×2 (10:15→22:07)
[2023-09-06] MEDS ORDERED: cloNIDine HCL 0.1 MG TABLET PO PRN (13:44)
[2023-09-06] MEDS: THIAMINE HCL 100 MG TABLET (FP) PO SCH (22:06)
[2023-09-06] MEDS: MELATONIN 5 MG TABLETS PO SCH (22:06)
[2023-09-06] MEDS: CLOTRIMAZOLE 1% CREAM TP SCH (22:07)
[2023-09-07] MEDS: diazePAM 5 MG TABLET PO SCH ×3 (05:53→22:14)
[2023-09-07 09:52] LABS: POTASSIUM 4.1 mmol/L (3.5-5.1)
[2023-09-07 09:57] LABS: ALBUMIN 3.2 g/dl (3.4-5.0)
[2023-09-07 10:01] LABS: BILIRUBIN,TOTAL 1.5 mg/dL (0.2-1); CREATININE 0.7 mg/dL (0.55-1.3)
[2023-09-07 10:02] LABS: TOT PROT 8.5 g/dl (6.4-8.2)
[2023-09-07] MEDS: MINERAL OIL/PET HY-PHL TOPICAL OINTMENT 454 GM JAR TP SCH ×2 (10:12→22:15)
[2023-09-07] MEDS: PRENATAL VITAMINS W/ FOLIC ACID TABLET (FP) PO SCH (10:12)
[2023-09-07] MEDS: CLOTRIMAZOLE 1% CREAM TP SCH ×2 (10:12→22:15)
[2023-09-07] MEDS: MELATONIN 5 MG TABLETS PO SCH (22:14)
[2023-09-07] MEDS: THIAMINE HCL 100 MG TABLET (FP) PO SCH (22:14)
[2023-09-08] MEDS: diazePAM 5 MG TABLET PO SCH ×2 (05:46→17:26)
[2023-09-08] MEDS: PRENATAL VITAMINS W/ FOLIC ACID TABLET (FP) PO SCH (10:15)
[2023-09-08] MEDS: MINERAL OIL/PET HY-PHL TOPICAL OINTMENT 454 GM JAR TP SCH ×2 (10:15→22:07)
[2023-09-08] MEDS: CLOTRIMAZOLE 1% CREAM TP SCH ×2 (10:16→22:07)
[2023-09-08] MEDS: MELATONIN 5 MG TABLETS PO SCH (22:09)
[2023-09-08] MEDS: THIAMINE HCL 100 MG TABLET (FP) PO SCH (22:09)
[2023-09-09] MEDS ORDERED: diazePAM 5 MG TABLET PO ONE (06:00)
[2023-09-09] MEDS: PRENATAL VITAMINS W/ FOLIC ACID TABLET (FP) PO SCH (10:15)
[2023-09-09] MEDS: MINERAL OIL/PET HY-PHL TOPICAL OINTMENT 454 GM JAR TP SCH ×2 (10:18→22:13)
[2023-09-09] MEDS: CLOTRIMAZOLE 1% CREAM TP SCH ×2 (10:18→22:12)
[2023-09-09] MEDS: THIAMINE HCL 100 MG TABLET (FP) PO SCH (22:13)
[2023-09-09] MEDS: MELATONIN 5 MG TABLETS PO SCH (22:13)
[2023-09-10 09:37] VITALS: BP 126/88; PULSE 83; RESP 18; TEMP 97.7
[2023-09-10] MEDS: PRENATAL VITAMINS W/ FOLIC ACID TABLET (FP) PO SCH (09:50)
[2023-09-10] MEDS: CLOTRIMAZOLE 1% CREAM TP SCH (09:50)
[2023-09-10] MEDS: MINERAL OIL/PET HY-PHL TOPICAL OINTMENT 454 GM JAR TP SCH (09:50)
== END 2023-09-10 11:48 | disposition home or self-care (01) | DRG 775 ==
LOC: YASAS 14:48 → Y3N 18:09
PROVIDERS: ADMIT Allergy & Immunology; ATTEND Surgery
PROC: HZ2ZZZZ Detoxification Services for Substance Abuse Treatment (ICD-10-PCS; principal; 2023-09-04)
DX: F10.230 Alcohol dependence with withdrawal, uncomplicated (principal); F17.210 Nicotine dependence, cigarettes, uncomplicated; F10.282 Alcohol dependence with alcohol-induced sleep disorder; D50.9 Iron deficiency anemia, unspecified; M16.0 Bilateral primary osteoarthritis of hip; B35.3 Tinea pedis; R79.89 Other specified abnormal findings of blood chemistry; R03.0 Elevated blood-pressure reading, without diagnosis of hypertension; Z96.643 Presence of artificial hip joint, bilateral; Z88.6 Allergy status to analgesic agent
CPT/HCPCS: 36415; 80053; 80307; 83036; 85027; 86780; 87635

== ENCOUNTER 2023-10-05 15:45 | Inpatient (IN) | payer OTHER ==
[2023-10-05 16:33] VITALS: BMI 22.9
[2023-10-05] MEDS ORDERED: MAG HYDROX/AL HYDROX/SIMETH 30 ML UNIT-DOSE CUP PO PRN (16:51)
[2023-10-05] MEDS ORDERED: NALOXONE HCL 0.4 MG/ML VIAL IM PRN (16:51)
[2023-10-05] MEDS ORDERED: MAGNESIUM HYDROX 2400MG/30ML ORAL SUSPENSION 30 ML CUP PO PRN (16:51)
[2023-10-05] MEDS ORDERED: LOPERAMIDE HCL 2 MG CAPSULE PO PRN (16:51)
[2023-10-05] MEDS ORDERED: POLYETHYLENE GLYCOL (HEALTHYLAX) 3350 17 GM PACKET PO PRN (16:51)
[2023-10-05] MEDS ORDERED: NALOXONE HCL (KLOXXADO) 8 MG SPRAY NS PRN (16:51)
[2023-10-05] MEDS ORDERED: BENZOCAINE/MENTHOL (CHLORASEPTIC ) LOZENGE MM PRN (16:51)
[2023-10-05] MEDS ORDERED: guaiFENesin 600 MG TABLET.ER (FP) PO PRN (16:51)
[2023-10-05] MEDS ORDERED: BENZONATATE 200 MG CAPSULE PO PRN (16:51)
[2023-10-05] MEDS: MELATONIN 5 MG TABLETS PO SCH (21:01)
[2023-10-05] MEDS: THIAMINE HCL 100 MG TABLET (FP) PO SCH (21:01)
[2023-10-05] MEDS: hydrOXYzine PAMOATE 25 MG CAPSULE (FP) PO PRN (21:01)
[2023-10-06] MEDS: PRENATAL VITAMINS W/ FOLIC ACID TABLET (FP) PO SCH (10:12)
[2023-10-06 10:17] LABS: CHLORIDE 105 mmol/L (98-107); POTASSIUM 3.8 mmol/L (3.5-5.1); SODIUM 136 mmol/L (136-145)
[2023-10-06 10:21] LABS: ALBUMIN 3.2 g/dl (3.4-5.0); ANION GAP 8 mmol/L (4-13); BLOOD UREA NITROGEN 5.9 mg/dL (7-18); CALCIUM 8.6 mg/dL (8.5-10.1); CO2 23 mmol/L (21-32)
[2023-10-06 10:22] LABS: GLUCOSE,RANDOM 121 mg/dL (74-106)
[2023-10-06 10:24] LABS: SGPT/ALT 26 U/L (13-61)
[2023-10-06 10:25] LABS: CREATININE 0.7 mg/dL (0.55-1.3); SGOT/AST 33 U/L (15-37)
[2023-10-06 10:26] LABS: BILIRUBIN,TOTAL 0.9 mg/dL (0.2-1)
[2023-10-06 10:27] LABS: ALK PHOS 85 U/L (45-117)
[2023-10-06 10:31] LABS: HEMATOCRIT 35.4 % (35.4-49); HEMOGLOBIN 11.7 GM/dL (11.7-16.9); MCH 28.4 pg (25.7-33.7); PLATELET COUNT 164 10^3/uL (134-434); RBC 4.12 M/mm3 (4.00-5.60); RDW 18.3 % (11.9-15.9); WHITE BLOOD COUNT 4.4 K/mm3 (4.0-10.0)
[2023-10-06 14:10] LABS: PH,URINE 6.5 (5.0-8.0); URINE APPEARANCE CLEAR; URINE BILIRUBIN NEGATIVE (NEGATIVE); URINE COLOR YELLOW; URINE GLUCOSE (UA) NEGATIVE (NEGATIVE); URINE KETONE NEGATIVE (NEGATIVE); URINE LEUK ESTERASE NEGATIVE (NEGATIVE); URINE NITRITE NEGATIVE (NEGATIVE); URINE PROTEIN NEGATIVE (NEGATIVE)
[2023-10-08] MEDS ORDERED: NALTREXONE HCL 50 MG TABLET PO SCH (10:00)
[2023-10-08] MEDS: NALTREXONE HCL 50 MG TABLET PO ONE (10:07)
[2023-10-08] MEDS: LACTULOSE 20 GM/30 ML UDC (FOR ORAL USE ONLY) PO SCH (13:09)
[2023-10-09] MEDS ORDERED: COLLOIDAL OATMEAL 1 EACH PACKET TP PRN (08:59)
[2023-10-09] MEDS: NALTREXONE HCL 50 MG TABLET PO SCH (10:45)
[2023-10-14] MEDS: MELATONIN 5 MG TABLETS PO SCH (21:20)
[2023-10-28] MEDS: POLYETHYLENE GLYCOL (HEALTHYLAX) 3350 17 GM PACKET PO SCH (12:19)
[2023-10-28] MEDS: MAG HYDROX/AL HYDROX/SIMETH 30 ML UNIT-DOSE CUP PO SCH (12:19)
[2023-10-31 07:41] VITALS: BP 105/73; PULSE 82; RESP 17; TEMP 97.5
== END 2023-10-31 10:29 | disposition home or self-care (01) | DRG 772 ==
LOC: YASAS 15:45 → Y3W 20:12
PROVIDERS: ADMIT Allergy & Immunology; ATTEND Neuromusculoskeletal Medicine & OMM
PROC: HZ42ZZZ Group Counseling for Substance Abuse Treatment, Cognitive-Behavioral (ICD-10-PCS; principal; 2023-10-05)
DX: F10.20 Alcohol dependence, uncomplicated (principal); E72.20 Disorder of urea cycle metabolism, unspecified; K59.01 Slow transit constipation; D60.9 Acquired pure red cell aplasia, unspecified; L85.3 Xerosis cutis; R13.10 Dysphagia, unspecified; Z87.891 Personal history of nicotine dependence; Z59.00 Homelessness unspecified; Z88.6 Allergy status to analgesic agent
CPT/HCPCS: 36415; 80053; 80307; 81003; 82140; 85027; 86780; 87635; 87811

== ENCOUNTER 2024-07-01 15:22 | Inpatient (IN) | payer OTHER ==
[2024-07-01 15:52] VITALS: BMI 21.4
[2024-07-01] MEDS ORDERED: LOPERAMIDE HCL 2 MG CAPSULE PO PRN (18:36)
[2024-07-01] MEDS ORDERED: NALOXONE (NYS OPIOID OVERDOSE PROGRAM) 4 MG/0.1 ML SPRAY NS PRN (18:36)
[2024-07-01] MEDS ORDERED: BENZONATATE 200 MG CAPSULE PO PRN (18:36)
[2024-07-01] MEDS ORDERED: POLYETHYLENE GLYCOL (HEALTHYLAX) 3350 17 GM PACKET PO PRN (18:36)
[2024-07-01] MEDS ORDERED: NALOXONE (NARCAN) HCL 4 MG/0.1 ML SPRAY NS PRN (18:36)
[2024-07-01] MEDS ORDERED: DICYCLOMINE HCL 10 MG CAPSULE PO PRN (18:36)
[2024-07-01] MEDS ORDERED: BISMUTH SUBSALICYLATE 524 MG/30 ML PO PRN (18:36)
[2024-07-01] MEDS ORDERED: guaiFENesin 600 MG TABLET.ER (FP) PO PRN (18:36)
[2024-07-01] MEDS ORDERED: MAGNESIUM HYDROX 2400MG/30ML ORAL SUSPENSION 30 ML CUP PO PRN (18:36)
[2024-07-01] MEDS ORDERED: ONDANSETRON *ODT* 4 MG TABLET SL PRN (18:36)
[2024-07-01] MEDS ORDERED: IBUPROFEN 400 MG TABLET (FP) PO PRN (18:36)
[2024-07-01] MEDS ORDERED: ACETAMINOPHEN 325 MG TABLET (FP) PO PRN (18:36)
[2024-07-01] MEDS ORDERED: BENZOCAINE/MENTHOL (CHLORASEPTIC ) LOZENGE MM PRN (18:36)
[2024-07-01] MEDS ORDERED: IBUPROFEN 600 MG TABLET (FP) PO PRN (18:36)
[2024-07-01] MEDS: THIAMINE 100 MG TABLET PO SCH (22:51)
[2024-07-01] MEDS: MELATONIN 5 MG TABLETS PO SCH (22:51)
[2024-07-01] MEDS: hydrOXYzine PAMOATE 25 MG CAPSULE (FP) PO PRN (22:52)
[2024-07-01] MEDS: METHOCARBAMOL 500 MG TABLET PO PRN (22:53)
[2024-07-02] MEDS: PRENATAL VITAMINS W/ FOLIC ACID TABLET (FP) PO SCH (10:10)
[2024-07-02] MEDS: chlordiazePOXIDE HCL 25 MG CAPSULE PO SCH (10:11)
[2024-07-02 15:27] LABS: HEMATOCRIT 36.7 % (35.4-49); HEMOGLOBIN 12.6 GM/dL (11.7-16.9); MCH 29.2 pg (25.7-33.7); MCHC 34.3 g/dl (32.0-35.9); MEAN CELL VOLUME 85.2 fl (80-96); MEAN PLT VOLUME 8.3 fl (7.5-11.1); PLATELET COUNT 230 10^3/uL (134-434); RDW 13.6 % (11.9-15.9); WHITE BLOOD COUNT 4.4 K/mm3 (4.0-10.0)
[2024-07-02 15:41] LABS: CHLORIDE 104 mmol/L (98-107); POTASSIUM 4.3 mmol/L (3.5-5.1); SODIUM 139 mmol/L (136-145)
[2024-07-02 15:43] LABS: CALCIUM 9.4 mg/dL (8.5-10.1)
[2024-07-02 15:44] LABS: ALBUMIN 3.5 g/dl (3.4-5.0); ANION GAP 6 mmol/L (4-13); BLOOD UREA NITROGEN 4.9 mg/dL (7-18); CO2 29 mmol/L (21-32); GLUCOSE,RANDOM 96 mg/dL (74-106)
[2024-07-02 15:47] LABS: CREATININE 0.5 mg/dL (0.55-1.3); SGOT/AST 33 U/L (15-37); SGPT/ALT 18 U/L (13-61)
[2024-07-02 15:48] LABS: BILIRUBIN,TOTAL 1.4 mg/dL (0.2-1)
[2024-07-02 15:49] LABS: TOT PROT 7.5 g/dl (6.4-8.2)
[2024-07-02 15:50] LABS: ALK PHOS 99 U/L (45-117)
[2024-07-02] MEDS: CYPROHEPTADINE HCL 4 MG TABLET PO SCH (16:36)
[2024-07-03] MEDS: chlordiazePOXIDE HCL 25 MG CAPSULE PO SCH (05:35)
[2024-07-03] MEDS: chlordiazePOXIDE HCL 25 MG CAPSULE PO PRN (10:51)
[2024-07-04] MEDS ORDERED: chlordiazePOXIDE HCL 10 MG CAPSULE PO PRN
[2024-07-04] MEDS: chlordiazePOXIDE HCL 10 MG CAPSULE PO SCH (05:39)
[2024-07-05] MEDS: chlordiazePOXIDE HCL 10 MG CAPSULE PO SCH (05:59)
[2024-07-06] MEDS: chlordiazePOXIDE HCL 10 MG CAPSULE PO ONE (05:13)
[2024-07-06] MEDS: CYPROHEPTADINE HCL 4 MG TABLET PO SCH (18:24)
[2024-07-07 09:18] VITALS: RESP 16
[2024-07-07] MEDS: MAG HYDROX/AL HYDROX/SIMETH 30 ML UNIT-DOSE CUP PO PRN (13:02)
[2024-07-07 16:25] VITALS: BP 101/68; PULSE 88; TEMP 98.7
== END 2024-07-07 14:02 | disposition other institution (70) | DRG 775 ==
LOC: YASAS 15:22 → Y6N 19:05
PROVIDERS: ADMIT Allergy & Immunology; ATTEND Surgery
PROC: HZ2ZZZZ Detoxification Services for Substance Abuse Treatment (ICD-10-PCS; principal; 2024-07-01)
DX: F10.230 Alcohol dependence with withdrawal, uncomplicated (principal); F10.282 Alcohol dependence with alcohol-induced sleep disorder; F10.24 Alcohol dependence with alcohol-induced mood disorder; F32.A Depression, unspecified; D50.9 Iron deficiency anemia, unspecified; K21.9 Gastro-esophageal reflux disease without esophagitis; M16.0 Bilateral primary osteoarthritis of hip; R63.4 Abnormal weight loss; Z68.21 Body mass index [BMI] 21.0-21.9, adult; Z87.891 Personal history of nicotine dependence; Z88.6 Allergy status to analgesic agent
CPT/HCPCS: 36415; 80053; 80305; 80307; 85027; 86780; 87811; 93005; 93010

== ENCOUNTER 2024-07-07 14:14 | Inpatient (IN) | payer OTHER ==
[2024-07-07] MEDS ORDERED: MAGNESIUM HYDROX 2400MG/30ML ORAL SUSPENSION 30 ML CUP PO PRN (15:22)
[2024-07-07] MEDS ORDERED: POLYETHYLENE GLYCOL (HEALTHYLAX) 3350 17 GM PACKET PO PRN (15:22)
[2024-07-07] MEDS ORDERED: BENZOCAINE/MENTHOL (CHLORASEPTIC ) LOZENGE MM PRN (15:22)
[2024-07-07] MEDS ORDERED: LOPERAMIDE HCL 2 MG CAPSULE PO PRN (15:22)
[2024-07-07] MEDS ORDERED: guaiFENesin 600 MG TABLET.ER (FP) PO PRN (15:22)
[2024-07-07] MEDS ORDERED: NICOTINE POLACRILEX 2 MG LOZENGE BC PRN (15:22)
[2024-07-07] MEDS ORDERED: BENZONATATE 200 MG CAPSULE PO PRN (15:22)
[2024-07-07] MEDS ORDERED: NICOTINE POLACRILEX 2 MG GUM BUC PRN (15:22)
[2024-07-07] MEDS: CYPROHEPTADINE HCL 4 MG TABLET PO SCH (16:25)
[2024-07-07] MEDS: hydrOXYzine PAMOATE 25 MG CAPSULE (FP) PO PRN (21:40)
[2024-07-07] MEDS: MELATONIN 5 MG TABLETS PO SCH (21:40)
[2024-07-07] MEDS: THIAMINE 100 MG TABLET PO SCH (21:40)
[2024-07-08] MEDS: PRENATAL VITAMINS W/ FOLIC ACID TABLET (FP) PO SCH (10:41)
[2024-07-09] MEDS: MAG HYDROX/AL HYDROX/SIMETH 30 ML UNIT-DOSE CUP PO PRN (10:11)
[2024-07-17] MEDS ORDERED: METHOCARBAMOL 500 MG TABLET PO PRN (07:53)
[2024-07-20 06:42] VITALS: RESP 16
[2024-07-21 06:49] VITALS: BP 102/68; PULSE 70; TEMP 97.3
== END 2024-07-21 10:13 | disposition home or self-care (01) | DRG 772 ==
LOC: YASAS 14:14 → Y3NR 14:17 → Y5N 07-08 11:41 → Y3E 07-19 19:19
PROVIDERS: ADMIT Psychiatry & Neurology Pain Medicine; ATTEND Psychiatry & Neurology Pain Medicine
PROC: HZ42ZZZ Group Counseling for Substance Abuse Treatment, Cognitive-Behavioral (ICD-10-PCS; principal; 2024-07-07)
DX: F10.20 Alcohol dependence, uncomplicated (principal); F32.A Depression, unspecified; R63.4 Abnormal weight loss; Z68.22 Body mass index [BMI] 22.0-22.9, adult; Z87.891 Personal history of nicotine dependence
CPT/HCPCS: 80305

== ENCOUNTER 2024-08-17 16:55 | Inpatient (IN) | payer OTHER ==
[2024-08-17 17:51] VITALS: BMI 22.2
[2024-08-17] MEDS ORDERED: NALOXONE (NARCAN) HCL 4 MG/0.1 ML SPRAY NS PRN (20:36)
[2024-08-17] MEDS ORDERED: ONDANSETRON *ODT* 4 MG TABLET SL PRN (20:36)
[2024-08-17] MEDS ORDERED: MAGNESIUM HYDROX 2400MG/30ML ORAL SUSPENSION 30 ML CUP PO PRN (20:36)
[2024-08-17] MEDS ORDERED: BENZOCAINE/MENTHOL (CHLORASEPTIC ) LOZENGE MM PRN (20:36)
[2024-08-17] MEDS ORDERED: guaiFENesin 600 MG TABLET.ER (FP) PO PRN (20:36)
[2024-08-17] MEDS ORDERED: DICYCLOMINE HCL 10 MG CAPSULE PO PRN (20:36)
[2024-08-17] MEDS ORDERED: BENZONATATE 200 MG CAPSULE PO PRN (20:36)
[2024-08-17] MEDS ORDERED: POLYETHYLENE GLYCOL (HEALTHYLAX) 3350 17 GM PACKET PO PRN (20:36)
[2024-08-17] MEDS ORDERED: BISMUTH SUBSALICYLATE 524 MG/30 ML PO PRN (20:36)
[2024-08-17] MEDS ORDERED: MAG HYDROX/AL HYDROX/SIMETH 30 ML UNIT-DOSE CUP PO PRN (20:36)
[2024-08-17] MEDS ORDERED: LOPERAMIDE HCL 2 MG CAPSULE PO PRN (20:36)
[2024-08-17] MEDS ORDERED: MELATONIN 5 MG TABLETS ONE (23:29)
[2024-08-17] MEDS: MELATONIN 5 MG TABLETS PO SCH (23:37)
[2024-08-17] MEDS: THIAMINE 100 MG TABLET PO SCH (23:37)
[2024-08-18] MEDS ORDERED: chlordiazePOXIDE HCL 25 MG CAPSULE PO PRN (08:24)
[2024-08-18] MEDS: chlordiazePOXIDE HCL 25 MG CAPSULE PO SCH (10:07)
[2024-08-18] MEDS: METHOCARBAMOL 500 MG TABLET PO PRN (10:07)
[2024-08-18] MEDS: hydrOXYzine PAMOATE 25 MG CAPSULE (FP) PO PRN (10:07)
[2024-08-18] MEDS: PRENATAL VITAMINS W/ FOLIC ACID TABLET (FP) PO SCH (10:08)
[2024-08-18] MEDS: NALTREXONE HCL 50 MG TABLET PO SCH (10:08)
[2024-08-18 12:54] LABS: CHLORIDE 104 mmol/L (98-107); POTASSIUM 3.8 mmol/L (3.5-5.1); SODIUM 139 mmol/L (136-145)
[2024-08-18 12:56] LABS: HEMATOCRIT 37.2 % (35.4-49); HEMOGLOBIN 12.1 GM/dL (11.7-16.9); MCH 28.8 pg (25.7-33.7); MCHC 32.5 g/dl (32.0-35.9); MEAN CELL VOLUME 88.6 fl (80-96); MEAN PLT VOLUME 9.3 fl (7.5-11.1); PLATELET COUNT 143 10^3/uL (134-434); RDW 15.3 % (11.9-15.9); WHITE BLOOD COUNT 4.1 K/mm3 (4.0-10.0)
[2024-08-18 12:58] LABS: CALCIUM 9.3 mg/dL (8.5-10.1)
[2024-08-18 12:59] LABS: ALBUMIN 3.8 g/dl (3.4-5.0); ANION GAP 8 mmol/L (4-13); BLOOD UREA NITROGEN 7.5 mg/dL (7-18); CO2 27 mmol/L (21-32); GLUCOSE,RANDOM 97 mg/dL (74-106)
[2024-08-18 13:02] LABS: CREATININE 0.5 mg/dL (0.55-1.3); SGOT/AST 51 U/L (15-37); SGPT/ALT 25 U/L (13-61)
[2024-08-18 13:04] LABS: BILIRUBIN,TOTAL 1.8 mg/dL (0.2-1); TOT PROT 7.9 g/dl (6.4-8.2)
[2024-08-18 13:05] LABS: ALK PHOS 96 U/L (45-117)
[2024-08-20] MEDS: chlordiazePOXIDE HCL 25 MG CAPSULE PO SCH (05:28)
[2024-08-21] MEDS ORDERED: chlordiazePOXIDE HCL 10 MG CAPSULE PO PRN
[2024-08-21] MEDS: chlordiazePOXIDE HCL 10 MG CAPSULE PO SCH (05:35)
[2024-08-22] MEDS: chlordiazePOXIDE HCL 10 MG CAPSULE PO SCH (05:41)
[2024-08-22 20:50] VITALS: RESP 16
[2024-08-23] MEDS: chlordiazePOXIDE HCL 10 MG CAPSULE PO ONE (05:45)
[2024-08-23 09:09] VITALS: BP 103/66; PULSE 72; TEMP 95.9
[2024-08-23] MEDS: NALOXONE (NYS OPIOID OVERDOSE PROGRAM) 4 MG/0.1 ML SPRAY NS SCH (09:40)
== END 2024-08-23 13:20 | disposition other institution (70) | DRG 775 ==
LOC: YASAS 16:55 → Y6N 22:17
PROVIDERS: ADMIT Allergy & Immunology; ATTEND Surgery
PROC: HZ2ZZZZ Detoxification Services for Substance Abuse Treatment (ICD-10-PCS; principal; 2024-08-17)
DX: F10.230 Alcohol dependence with withdrawal, uncomplicated (principal); F10.282 Alcohol dependence with alcohol-induced sleep disorder; F10.280 Alcohol dependence with alcohol-induced anxiety disorder; F32.9 Major depressive disorder, single episode, unspecified; G47.00 Insomnia, unspecified; M17.0 Bilateral primary osteoarthritis of knee; Z87.891 Personal history of nicotine dependence; Z56.0 Unemployment, unspecified; Z59.00 Homelessness unspecified; Z88.6 Allergy status to analgesic agent
CPT/HCPCS: 36415; 80053; 80305; 80307; 85027; 86780; 87811; 93005; 93010

== ENCOUNTER 2024-08-23 13:18 | Inpatient (IN) | payer OTHER ==
[2024-08-23] MEDS ORDERED: BENZOCAINE/MENTHOL (CHLORASEPTIC ) LOZENGE MM PRN (15:20)
[2024-08-23] MEDS ORDERED: MAG HYDROX/AL HYDROX/SIMETH 30 ML UNIT-DOSE CUP PO PRN (15:20)
[2024-08-23] MEDS ORDERED: guaiFENesin 600 MG TABLET.ER (FP) PO PRN (15:20)
[2024-08-23] MEDS ORDERED: POLYETHYLENE GLYCOL (HEALTHYLAX) 3350 17 GM PACKET PO PRN (15:20)
[2024-08-23] MEDS ORDERED: MAGNESIUM HYDROX 2400MG/30ML ORAL SUSPENSION 30 ML CUP PO PRN (15:20)
[2024-08-23] MEDS ORDERED: BENZONATATE 200 MG CAPSULE PO PRN (15:20)
[2024-08-23] MEDS ORDERED: LOPERAMIDE HCL 2 MG CAPSULE PO PRN (15:20)
[2024-08-23] MEDS: MELATONIN 5 MG TABLETS PO SCH (22:10)
[2024-08-23] MEDS: THIAMINE 100 MG TABLET PO SCH (22:10)
[2024-08-23] MEDS: METHOCARBAMOL 500 MG TABLET PO PRN (22:11)
[2024-08-24] MEDS: PRENATAL VITAMINS W/ FOLIC ACID TABLET (FP) PO SCH (05:43)
[2024-08-24] MEDS: hydrOXYzine PAMOATE 25 MG CAPSULE (FP) PO PRN (21:47)
[2024-08-27 06:33] VITALS: RESP 16
[2024-09-03] MEDS ORDERED: IBUPROFEN 400 MG TABLET (FP) PO PRN (13:12)
[2024-09-03] MEDS: NALTREXONE HCL 50 MG TABLET PO ONE (14:05)
[2024-09-03] MEDS: traZODone HCL 50 MG TABLET (FP) PO SCH (21:09)
[2024-09-04] MEDS: NALTREXONE HCL 50 MG TABLET PO SCH (09:50)
[2024-09-07 06:23] VITALS: BP 97/61; PULSE 68; TEMP 97.3
[2024-09-07] MEDS: NALOXONE (NYS OPIOID OVERDOSE PROGRAM) 4 MG/0.1 ML SPRAY NS SCH (10:10)
== END 2024-09-07 11:14 | disposition home or self-care (01) | DRG 772 ==
LOC: YASAS 13:18 → Y3NR 13:20 → Y3W 08-25 11:01
PROVIDERS: ADMIT Neuromusculoskeletal Medicine & OMM; ATTEND Psychiatry & Neurology Pain Medicine
PROC: HZ40ZZZ Group Counseling for Substance Abuse Treatment, Cognitive (ICD-10-PCS; principal; 2024-08-23)
DX: F10.20 Alcohol dependence, uncomplicated (principal); F32.A Depression, unspecified; D64.9 Anemia, unspecified; G47.00 Insomnia, unspecified; M17.0 Bilateral primary osteoarthritis of knee; Z87.891 Personal history of nicotine dependence

== ENCOUNTER 2024-09-29 09:52 | Inpatient (IN) | payer OTHER ==
[2024-09-29 10:22] VITALS: BMI 22.5
[2024-09-29] MEDS ORDERED: BISMUTH SUBSALICYLATE 524 MG/30 ML PO PRN (10:30)
[2024-09-29] MEDS ORDERED: guaiFENesin 600 MG TABLET.ER (FP) PO PRN (10:30)
[2024-09-29] MEDS ORDERED: LOPERAMIDE HCL 2 MG CAPSULE PO PRN (10:30)
[2024-09-29] MEDS ORDERED: DICYCLOMINE HCL 10 MG CAPSULE PO PRN (10:30)
[2024-09-29] MEDS ORDERED: ONDANSETRON *ODT* 4 MG TABLET SL PRN (10:30)
[2024-09-29] MEDS ORDERED: IBUPROFEN 600 MG TABLET (FP) PO PRN (10:30)
[2024-09-29] MEDS ORDERED: MAG HYDROX/AL HYDROX/SIMETH 30 ML UNIT-DOSE CUP PO PRN (10:30)
[2024-09-29] MEDS ORDERED: BENZOCAINE/MENTHOL (CHLORASEPTIC ) LOZENGE MM PRN (10:30)
[2024-09-29] MEDS ORDERED: POLYETHYLENE GLYCOL (HEALTHYLAX) 3350 17 GM PACKET PO PRN (10:30)
[2024-09-29] MEDS ORDERED: MAGNESIUM HYDROX 2400MG/30ML ORAL SUSPENSION 30 ML CUP PO PRN (10:30)
[2024-09-29] MEDS ORDERED: BENZONATATE 200 MG CAPSULE PO PRN (10:30)
[2024-09-29] MEDS: THIAMINE 100 MG TABLET PO SCH (23:07)
[2024-09-29] MEDS: MELATONIN 5 MG TABLETS PO SCH (23:12)
[2024-09-30] MEDS ORDERED: chlordiazePOXIDE HCL 25 MG CAPSULE PO PRN (08:46)
[2024-09-30] MEDS: PRENATAL VITAMINS W/ FOLIC ACID TABLET (FP) PO SCH (10:06)
[2024-09-30] MEDS: chlordiazePOXIDE HCL 25 MG CAPSULE PO SCH (10:07)
[2024-09-30 11:40] LABS: POTASSIUM 3.7 mmol/L (3.5-5.1)
[2024-09-30 11:45] LABS: HEMATOCRIT 37.9 % (35.4-49); HEMOGLOBIN 12.1 GM/dL (11.7-16.9); MCH 28.5 pg (25.7-33.7); PLATELET COUNT 109 10^3/uL (134-434); RBC 4.26 M/mm3 (4.00-5.60); RDW 16.5 % (11.9-15.9); WHITE BLOOD COUNT 4.9 K/mm3 (4.0-10.0)
[2024-09-30 11:46] LABS: ALBUMIN 3.5 g/dl (3.4-5.0); BLOOD UREA NITROGEN 9.2 mg/dL (7-18)
[2024-09-30 11:47] LABS: CALCIUM 8.9 mg/dL (8.5-10.1); CREATININE 0.6 mg/dL (0.55-1.3)
[2024-09-30 11:51] LABS: BILIRUBIN,TOTAL 1.9 mg/dL (0.2-1); TOT PROT 7.9 g/dl (6.4-8.2)
[2024-10-02] MEDS: chlordiazePOXIDE HCL 25 MG CAPSULE PO SCH (05:23)
[2024-10-02] MEDS: hydrOXYzine PAMOATE 25 MG CAPSULE (FP) PO PRN (22:54)
[2024-10-03] MEDS ORDERED: chlordiazePOXIDE HCL 10 MG CAPSULE PO PRN
[2024-10-03] MEDS: chlordiazePOXIDE HCL 10 MG CAPSULE PO SCH (05:40)
[2024-10-04] MEDS: chlordiazePOXIDE HCL 10 MG CAPSULE PO SCH (05:27)
[2024-10-04] MEDS: METHOCARBAMOL 500 MG TABLET PO PRN (10:37)
[2024-10-05] MEDS: chlordiazePOXIDE HCL 10 MG CAPSULE PO ONE (05:33)
[2024-10-05 09:20] VITALS: BP 103/70; PULSE 74; RESP 17; TEMP 98.4
[2024-10-05] MEDS: NALOXONE (NYS OPIOID OVERDOSE PROGRAM) 4 MG/0.1 ML SPRAY NS SCH (11:04)
== END 2024-10-05 12:48 | disposition home or self-care (01) | DRG 775 ==
LOC: YASAS 09:52 → Y6N 10:52 → Y3N 11:27
PROVIDERS: ADMIT Allergy & Immunology; ATTEND Allergy & Immunology
PROC: HZ2ZZZZ Detoxification Services for Substance Abuse Treatment (ICD-10-PCS; principal; 2024-09-29)
DX: F10.20 Alcohol dependence, uncomplicated (principal); F19.24 Other psychoactive substance dependence with psychoactive substance-induced mood disorder; G47.00 Insomnia, unspecified; K21.9 Gastro-esophageal reflux disease without esophagitis; M19.90 Unspecified osteoarthritis, unspecified site; Z99.89 Dependence on other enabling machines and devices; Z87.891 Personal history of nicotine dependence; Z88.6 Allergy status to analgesic agent
CPT/HCPCS: 36415; 80053; 80305; 80307; 85027